=== PATIENT | female | born 1950 | race Two or more races ===

== ENCOUNTER 2019-12-19 20:53 | Inpatient (IN) | payer MEDICARE, MEDICAID ==
[~2019-12-19] VITALS: Ht 157.5 cm; Wt 94.5 kg
[2019-12-19] MEDS ORDERED: SODIUM CHLORIDE 0.9% 300 ML IV ONE (21:15)
[2019-12-19 22:18] LABS: Basophils # (auto) 0 10 ^3/uL (0-0.2); Basophils % (auto) 0.3 % (0.0-2.0); Eosinophils # (auto) 0 10 ^3/uL (0-0.8); Eosinophils % (auto) 0.2 % (0.0-7.0); Lymphocytes # (auto) 0.8 10 ^3/uL (0.4-5.4)
[2019-12-19 22:20] LABS: Hematocrit 30.5 % (36.0-46.0); Hemoglobin 9.8 g/dL (12.2-16.2); Lymphocytes % (auto) 7.5 % (10.0-50.0); Mean Corpuscular Hemoglobin 33.4 pg (28.0-32.0); Mean Corpuscular Hgb Conc. 32.2 g/dL (32.0-36.0); Mean Corpuscular Volume 103.9 fL (80.0-100.0); Monocytes # (auto) 0.8 10 ^3/uL (0-1.3); Monocytes % (auto) 7.2 % (0.0-12.0); Neutrophils # (auto) 9.1 10 ^3/uL (1.6-8.6); Neutrophils % (auto) 84.8 % (37.0-80.0); Nucleated Red Blood Cells % 0.4 %; Platelet Count (auto) 177 10^3/uL (140-450); Red Blood Cells 2.94 10^6/uL (4.0-5.20); Red Cell Distribution Width 17.3 % (11.8-14.3); White Blood Cell 10.7 10^3/uL (4.4-10.8)
[2019-12-19 22:22] LABS: Albumin 2.3 g/dL (3.4-5.0); Anion Gap 7 (5-15); Blood Urea Nitrogen 27 mg/dL (7-18); Carbon Dioxide 28 mmol/L (21-32); Chloride 99 mmol/L (98-107); Potassium 3.1 mmol/L (3.5-5.1); Sodium 134 mmol/L (136-145)
[2019-12-19 22:23] LABS: INR 1.46 (0.9-1.15); Partial Thromboplastin Time 34.7 sec (23.64-32.05)
[2019-12-19 22:26] LABS: Alanine Aminotransferase 17 U/L (13-56); Aspartate Aminotransferase 30 U/L (15-37); Blood Alcohol < 3.0 mg/dL (0-5); GFR African American 19 mL/min; GFR Non-African American 16 mL/min; Glucose 91 mg/dL (74-106)
[2019-12-19 22:27] LABS: BUN/Creatinine Ratio 8.8
[2019-12-19 22:29] LABS: Lactic Acid w/Reflex 2.4 mmol/L (0.4-2.0)
[2019-12-19 22:32] LABS: Alkaline Phosphatase 232 U/L (45-117); Bilirubin, Total 1.4 mg/dL (0.2-1.0); Total Protein 7.2 g/dL (6.4-8.2)
[2019-12-19 23:24] LABS: Urine Bacteria NONE SEEN /hpf (None Seen); Urine Blood 3+ /uL (Negative); Urine Budding Yeast MANY /hpf (None Seen); Urine WBC 4204 /hpf (0 - 5); Urine WBC Clumps PRESENT /hpf (None Seen)
[2019-12-19 23:25] LABS: Urine Specific Gravity 1.027 (1.001-1.035)
[2019-12-20] MEDS ORDERED: ONDANSETRON HCL 4 MG/2 ML VIAL IV PRN (04:15)
[2019-12-20] MEDS ORDERED: MORPHINE SULFATE 4 MG/ML SYR/VIAL IV PRN (04:15)
[2019-12-20] MEDS ORDERED: DOCUSATE SOD 100 MG CAP PO PRN (04:15)
[2019-12-20] MEDS ORDERED: HYDROcodone-ACET 5/325MG TAB PO PRN (04:15)
[2019-12-20] MEDS ORDERED: ACETAMINOPHEN 325 MG TAB PO PRN (04:15)
[2019-12-20] MEDS ORDERED: DEXTROSE (50%) 50ML SYRG IV PRN (04:15)
[2019-12-20] MEDS: cefTRIAXone 1GM/50ML D5W 50 ML IV SCH ×2 (04:47→10:00)
[2019-12-20] MEDS: SODIUM CHLORIDE 0.9% 1,000 ML IV SCH ×2 (04:47→14:01)
[2019-12-20 07:48] LABS: Basophils # (auto) 0.1 10 ^3/uL (0-0.2); Eosinophils # (auto) 0.1 10 ^3/uL (0-0.8); Hemoglobin 10.2 g/dL (12.2-16.2); Monocytes # (auto) 0.9 10 ^3/uL (0-1.3); Monocytes % (auto) 7.9 % (0.0-12.0); Neutrophils # (auto) 9.3 10 ^3/uL (1.6-8.6); White Blood Cell 11.6 10^3/uL (4.4-10.8)
[2019-12-20 07:50] LABS: Basophils % (auto) 0.7 % (0.0-2.0); Eosinophils % (auto) 0.6 % (0.0-7.0); Hematocrit 31.9 % (36.0-46.0); Lymphocytes # (auto) 1.3 10 ^3/uL (0.4-5.4); Lymphocytes % (auto) 11.1 % (10.0-50.0); Mean Corpuscular Hemoglobin 33.1 pg (28.0-32.0); Mean Corpuscular Volume 103.4 fL (80.0-100.0); Neutrophils % (auto) 79.7 % (37.0-80.0); Nucleated Red Blood Cells % 0.1 %; Platelet Count (auto) 181 10^3/uL (140-450); Red Blood Cells 3.09 10^6/uL (4.0-5.20); Red Cell Distribution Width 17.4 % (11.8-14.3)
[2019-12-20] MEDS: InsuLIN REG 1unit/0.01ml Soln (100units/ml) SC SCH ×5 (08:00→23:54)
[2019-12-20 08:08] LABS: BUN/Creatinine Ratio 8.8; Calcium 8.9 mg/dL (8.5-10.1)
[2019-12-20 08:13] LABS: Potassium 2.9 mmol/L (3.5-5.1)
[2019-12-20] MEDS: ACCU-CHEK COMFORT CURVE STRIP VI SCH ×5 (08:30→23:54)
[2019-12-20] MEDS ORDERED: POTASSIUM CHLORIDE 20 MEQ, LIDOCAINE 1% (LOCAL ANESTH.) 2 ML in SODIUM CHL 0.9% 100 ML IV ONE (08:30)
--- NOTE | 2019-12-20 10:00 | NUR ---
TRANSFERRED Patient brought to [facility] by ABDIEL LUQUE RN. Care initiated.
--- NOTE | 2019-12-20 10:05 | NUR ---
LARGE BM Patient has dried bowel movement on her inner thighs and labia on arrival from emergency room. Cleaning patient.
--- NOTE | 2019-12-20 10:15 | NUR ---
FULL LINEN CHANGE Patient hard large liquid BM.
--- NOTE | 2019-12-20 10:30 | NUR ---
SPOKE TO MD: [place] Patient is not a HDD patient. Changing consult to Eunice.
--- NOTE | 2019-12-20 10:34 | NUR ---
AIR MATTRESS: Specialty air mattress ordered at [facility],Reference # [id number]; ETA 12/20/19 @6376, Call [facility] if need to follow up at [phone] Addendum: 12/20/19 at 1036 by Lachelle Martinez RN Amended: Links added.
--- NOTE | 2019-12-20 11:15 | NUR ---
SPOKE TO FAMILY Spoke to patients nephewHerminio, update on patient status and plan of care given.
[2019-12-20 11:45] VITALS: BP 97/47
[2019-12-20 15:19] LABS: Anion Gap 6 (5-15); BUN/Creatinine Ratio 8.4; Blood Urea Nitrogen 28 mg/dL (7-18); Calcium 8.6 mg/dL (8.5-10.1); Carbon Dioxide 28 mmol/L (21-32); Chloride 102 mmol/L (98-107); GFR African American 18 mL/min; GFR Non-African American 15 mL/min; Glucose 109 mg/dL (74-106); Potassium 3.3 mmol/L (3.5-5.1); Sodium 136 mmol/L (136-145)
--- NOTE | 2019-12-20 15:34 | NUR ---
CONSULT CALLED IN Called Dr. Dawson's office and placed consult.
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
[2019-12-20 15:40] VITALS: BP 93/45
--- NOTE | 2019-12-20 16:55 | NUR ---
SPOKE TO FAMILY Nephew Herminio called for an update. Update given at this time.
--- NOTE | 2019-12-20 16:56 | NUR ---
TRANSFERRED TO SPECIALTY AIR BED Patient transferred to air bed. Patient tolerated well.
--- NOTE | 2019-12-20 17:30 | NUR ---
MD BEDSIDE: Gloria Castro bedside assessing patient. Spoke to MD about patients mass in right lower quadrant of the abdomen. MD ordered OB consult and transvaginal US. Orders verified and placed.
[2019-12-20 20:00] VITALS: BP 97/17
[2019-12-21] VITALS: BP 119/37
[2019-12-21] MEDS: SODIUM CHLORIDE 0.9% 1,000 ML IV SCH ×2 (00:01→06:28)
[2019-12-21 03:37] LABS: Basophils # (auto) 0.1 10 ^3/uL (0-0.2); Basophils % (auto) 0.6 % (0.0-2.0); Eosinophils # (auto) 0.1 10 ^3/uL (0-0.8); Eosinophils % (auto) 0.7 % (0.0-7.0); Hematocrit 31.1 % (36.0-46.0); Lymphocytes # (auto) 0.7 10 ^3/uL (0.4-5.4); Lymphocytes % (auto) 7.6 % (10.0-50.0); Mean Corpuscular Hemoglobin 33.3 pg (28.0-32.0); Mean Corpuscular Hgb Conc. 32.1 g/dL (32.0-36.0); Mean Corpuscular Volume 103.7 fL (80.0-100.0); Monocytes # (auto) 0.5 10 ^3/uL (0-1.3); Monocytes % (auto) 5.3 % (0.0-12.0); Neutrophils # (auto) 8.2 10 ^3/uL (1.6-8.6); Neutrophils % (auto) 85.8 % (37.0-80.0); Nucleated Red Blood Cells % 0.4 %; Platelet Count (auto) 184 10^3/uL (140-450); Red Cell Distribution Width 17.5 % (11.8-14.3); White Blood Cell 9.5 10^3/uL (4.4-10.8)
[2019-12-21] MEDS: InsuLIN REG 1unit/0.01ml Soln (100units/ml) SC SCH ×5 (03:52→20:00)
[2019-12-21] MEDS: ACCU-CHEK COMFORT CURVE STRIP VI SCH ×5 (03:52→20:00)
[2019-12-21 03:54] LABS: Albumin 2.2 g/dL (3.4-5.0); Calcium 8.7 mg/dL (8.5-10.1)
[2019-12-21 03:58] LABS: BUN/Creatinine Ratio 9.7; Bilirubin, Total 0.7 mg/dL (0.2-1.0); Total Protein 6.7 g/dL (6.4-8.2)
[2019-12-21 04:00] VITALS: BP 116/16
--- NOTE | 2019-12-21 04:45 | NUR ---
hospitalist paged regarding morning labs
--- NOTE | 2019-12-21 05:10 | NUR ---
HOSPITALIST CALLED BACK ORDER RECEIVED, READ BACK AND VERIFIED. WILL BE PLACED INTO [employer] BY RN.
[2019-12-21] MEDS ORDERED: POTASSIUM CHL 20 Meq TABLET PO ONE (05:15)
--- NOTE | 2019-12-21 05:51 | NUR ---
PT HAD BM COMPLETE LINEN CHANGE. NOW RESTING IN BED. WILL CONTINUE TO MONITOR.
[2019-12-21 08:00] VITALS: BP 99/46
--- NOTE | 2019-12-21 08:00 | NUR ---
Opening Shift Note Assumed care of patient, awake and alert. No S/S of distress/SOB or pain. Patient saturation 97% at room air. Patient's POC glucose 60mg/dl, patient given 8ox juice and eating breakfast. See interventions for complete assessment. Bed locked on low position, side rails up x2, bed alarms on at all times, call mg within reach, instructed on POC and to call for assist PRN, will continue to monitor for changes Q1hr and PRN.
--- NOTE | 2019-12-21 09:11 | NUR ---
Dr Tarango at bedside, updated on patient's status. Patient seen and examined. Plan to do LT 3rd digit toe amputation on Sat, NPO midnight of Sat . states "I'll put the order in." Read back and verified.
[2019-12-21] MEDS: cefTRIAXone 1GM/50ML D5W 50 ML IV SCH (10:10)
[2019-12-21 11:45] VITALS: BP 93/47
--- NOTE | 2019-12-21 13:00 | NUR ---
Dr Castro at bedside, updated on patient's status, informed of patient's anuria/oliguria and low BP's. MD verbalized understanding. Patient seen and examined. Will carry out new orders.
--- NOTE | 2019-12-21 13:03 | NUR ---
Dr Castro informed patient has been having watery stools, received order for CDIFF and stool bacterial culture. Read back and verified.
--- NOTE | 2019-12-21 13:15 | NUR ---
Patient had moderate amount of watery stool, given perineal care. Skin integrity assessed for any changes. Cleansed sacral wounds with wound cleanser, pat dry with gauze, z guard applied, optifoam placed. Patient's gown and linens changed. Patient repositioned for comfort. Stool sample for Cdiff and culture sent to lab.
--- NOTE | 2019-12-21 13:37 | NUR ---
Dr Bruce at bedside, updated on patient's status. Patient seen and examined. Will carry out new orders.
--- NOTE | 2019-12-21 13:40 | NUR ---
MRSA swab and stool sample sent to lab. Not enough urine to collect for bacterial culture at this time.
--- NOTE | 2019-12-21 13:48 | NUR ---
Spoke to patient's nephew Herminio who's able to provide password, updated on patient's status and POC, verbalized understanding. All questions and concerns addressed.
--- NOTE | 2019-12-21 14:34 | NUR ---
Nutrition Assessment Notes Please refer to link for full assessment notes. Est Energy needs: 0659-8438 kcals (20-23 kcal/kgBW) Est Protein needs: 115-126 gms/day (1.1-1.2 gm/kgBW) Will continue to monitor and reassess prn. Addendum: 12/21/19 at [address] Amended: Links added.
[2019-12-21] MEDS ORDERED: LIDOCAINE 1% HCL (LOCAL ANESTH.) INJ 20ML MDV ID ONE ×2 (15:30)
[2019-12-21] MEDS ORDERED: SODIUM CHL 0.9% 1000 ML BAG XX ONE (15:30)
--- NOTE | 2019-12-21 15:33 | NUR ---
Dr Locke at bedside, updated on patient's status. Aware of patient's anuria/oliguria and hematuria. Received verbal order to discontinue IV fluids. Read back and verified. Will carry out.
[2019-12-21] MEDS ORDERED: ALBUMIN 25% 100 ML IV ONE ×2 (15:45→17:00)
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
[2019-12-21 16:00] VITALS: BP 91/54
--- NOTE | 2019-12-21 16:11 | NUR ---
Attempted to collect urine sample for culture but patient has no urine output.
[2019-12-21] MEDS ORDERED: LIDOCAINE 1% (LOCAL ANESTH.) PF 5ml SDV ID ONE (16:15)
--- NOTE | 2019-12-21 16:18 | NUR ---
HD started at bedside, will continue to monitor.
--- NOTE | 2019-12-21 16:30 | NUR ---
Patient's blood sugar 132mg/dl, held two units of Insulin because patient's blood sugar has been on the lower side. Will continue to monitor.
--- NOTE | 2019-12-21 16:40 | NUR ---
Spoke to Dr Tarango over the phone, clarified Cardiology consult to Dr Kohli and states "Can you please re-direct the consult to Dr Vincent for revascularization of LT leg." Read back and verified. Will carry out.
--- NOTE | 2019-12-21 16:45 | NUR ---
Called in consult to Dr Vincent, awaiting call back.
[2019-12-21] MEDS: Glucerna Carbsteady SHAKE Vanilla 8oz PO SCH (18:00)
--- NOTE | 2019-12-21 19:15 | NUR ---
OPENING SHIFT RECEIVED REPORT FROM DAY SHIFT RN. ASSUMED CARE OF PATIENT. PATIENT IN BED RECEIVING DIALYSIS - POWDER BLENDER AT BEDSIDE. PATIENT TOLERATING DIALYSIS WELL, NO SIGNS OR SYMPTOMS OF SOB, PAIN OR DISTRESS. CURRENTLY ON ROOM AIR, 02 SAT - 100%. RIGHT ANTECUBITAL IV - CLEAN/DRY/INTACT. LEFT ARM FISTULA AUSCULTATED - BRUIT AND THRILL PRESENT. GOLDSTEIN HUNG TO GRAVITY. REPOSITIONED FOR COMFORT. UPDATED PATIENT ON PLAN OF CARE. BED IN LOWEST POSITION, SIDE RAILS UP X2. CALL LIGHT WITHIN REACH. WILL CONTINUE TO MONITOR.
[2019-12-21 20:00] VITALS: BP 108/54
[2019-12-21] MEDS: DAKINS QUARTER STR 0.125% (NaHypochlorite) 473 ML TOPICAL SOL TOP SCH (22:00)
[2019-12-21] MEDS ORDERED: DAKINS QUARTER STR 0.125% (NaHypochlorite) 473 ML TOPICAL SOL TOP SCH (22:00)
[2019-12-22] VITALS: BP 94/50
[2019-12-22 03:18] LABS: Eosinophils % (auto) 0.7 % (0.0-7.0); Monocytes # (auto) 0.5 10 ^3/uL (0-1.3); Platelet Count (auto) 171 10^3/uL (140-450)
[2019-12-22 03:20] LABS: Basophils # (auto) 0 10 ^3/uL (0-0.2); Basophils % (auto) 0.6 % (0.0-2.0); Eosinophils # (auto) 0 10 ^3/uL (0-0.8); Hematocrit 27.3 % (36.0-46.0); Lymphocytes # (auto) 0.6 10 ^3/uL (0.4-5.4); Lymphocytes % (auto) 7.9 % (10.0-50.0); Mean Corpuscular Hemoglobin 33.7 pg (28.0-32.0); Mean Corpuscular Hgb Conc. 32.9 g/dL (32.0-36.0); Mean Corpuscular Volume 102.4 fL (80.0-100.0); Monocytes % (auto) 6.7 % (0.0-12.0); Neutrophils # (auto) 5.9 10 ^3/uL (1.6-8.6); Neutrophils % (auto) 84.1 % (37.0-80.0); Nucleated Red Blood Cells % 0.2 %; Red Blood Cells 2.67 10^6/uL (4.0-5.20); Red Cell Distribution Width 17.1 % (11.8-14.3)
[2019-12-22] MEDS: ACCU-CHEK COMFORT CURVE STRIP VI SCH ×6 (03:32→20:00)
[2019-12-22] MEDS: InsuLIN REG 1unit/0.01ml Soln (100units/ml) SC SCH ×6 (03:32→20:37)
[2019-12-22 03:40] LABS: INR 1.3 (0.9-1.15); Partial Thromboplastin Time 31.5 sec (23.64-32.05); Potassium 3.5 mmol/L (3.5-5.1)
[2019-12-22 03:47] LABS: Albumin 2.7 g/dL (3.4-5.0); BUN/Creatinine Ratio 8.4; Bilirubin, Total 0.9 mg/dL (0.2-1.0); Calcium 8.1 mg/dL (8.5-10.1); Total Protein 6.9 g/dL (6.4-8.2)
--- NOTE | 2019-12-22 03:57 | NUR ---
URINE SPECIMEN COLLECTED AND SENT TO LAB
[2019-12-22 04:00] VITALS: BP 88/44
--- NOTE | 2019-12-22 04:30 | NUR ---
MORNING CARE PERFORMED MORNING CARE WITH CHG WIPES AND WASH CLOTHS TO THE FACE. FULL LINEN CHANGE AND GOWN CHANGED. REPOSITIONED FOR COMFORT. SKIN REASSESSED AT THIS TIME. SACRAL AND LEFT FOOT DRESSINGS CHANGED AND ENFORCED. GOLDSTEIN CARE PERFORMED. PATIENT PERFORMED ORAL CARE ON SELF. BED IN LOWEST POSITION, SIDE RAILS UP X2. CALL LIGHT WITHIN REACH. WILL CONTINUE TO MONITOR.
[2019-12-22 08:00] VITALS: BP 93/51
--- NOTE | 2019-12-22 08:05 | NUR ---
END OF SHIFT REPORT GIVEN TO DAY SHIFT RN. CARE ENDORSED.
--- NOTE | 2019-12-22 08:30 | NUR ---
Opening Shift Note Assumed care of patient, awake and alert. No S/S of distress/SOB or pain. See interventions for complete assessment. Bed locked on low position, side rails up x2, bed alarms on at all times, call mg within reach, instructed on POC and to call for assist PRN, will continue to monitor for changes Q1hr and PRN.
--- NOTE | 2019-12-22 09:00 | NUR ---
Dr Locke at bedside, updated on patient's status. Patient seen and examined. Received verbal order to discontinue calderon catheter, read back and verified. Will carry out.
[2019-12-22] MEDS ORDERED: MIDODRINE HCL 10 MG TAB PO ONE (09:15)
[2019-12-22] MEDS: Glucerna Carbsteady SHAKE Vanilla 8oz PO SCH ×3 (09:22→17:49)
--- NOTE | 2019-12-22 09:30 | NUR ---
Cleansed LT 3rd toe with 1/4 Daikin's solution covered with xeroform and kirlix, patient tolerated well.
[2019-12-22] MEDS: cefTRIAXone 1GM/50ML D5W 50 ML IV SCH (09:38)
[2019-12-22] MEDS: DAKINS QUARTER STR 0.125% (NaHypochlorite) 473 ML TOPICAL SOL TOP SCH ×2 (09:39→21:27)
--- NOTE | 2019-12-22 10:00 | NUR ---
Calderon catheter dc'd Order to discontinue calderon catheter. Calderon dc'd with clean technique following deflation of balloon. Patient tolerated well with no complaints of pain. Continue care.
--- NOTE | 2019-12-22 10:20 | NUR ---
Received call from patient's nephew/caregiver Herminio who's able to provide password. Updated on patient's status and POC. All questions and concerns addressed.
--- NOTE | 2019-12-22 10:45 | NUR ---
IV removal RT AC leaking, disconitnue with clean sterile technique, catheter fully intact. Pressure dressing applied to site. Patient tolerated well.
--- NOTE | 2019-12-22 10:50 | NUR ---
2x Unsuccesful attempt to obtain IV access, 22 g catheter RT hand and RT forearm. No trauma to site.
--- NOTE | 2019-12-22 11:15 | NUR ---
IV insertion IV access obtained, via clean sterile technique by inserting 20 gauge catheter at RT AC after two attempts by Le STARR. IV secured properly. No trauma to site. Patient tolerated procedure well.
--- NOTE | 2019-12-22 11:43 | NUR ---
Dr Castro at bedside, updated on patent's status, verbalized understanding. Patient seen and examined. Received verbal order to start patient on Vancomycin per pharmacy protocol, Regina Hernandez informed.
[2019-12-22] MEDS ORDERED: PHYTONADIONE(VitK) ORAL Susp 10mg/10ml(1mg/ml) PO ONE (11:45)
[2019-12-22 11:47] VITALS: BP 102/49
[2019-12-22] MEDS ORDERED: VANCOMYCIN PER PHARMACY 0 MG IV SCH (12:00)
--- NOTE | 2019-12-22 12:26 | NUR ---
Patient's blood sugar 138mg/dl, 2 units Regular Insulin held because patient's blood sugar has been on the lower side. Will continue to monitor.
[2019-12-22] MEDS ORDERED: VANCOMYCIN 1GM/250ML 250 ML IV ONE (13:00)
[2019-12-22 16:15] VITALS: BP 90/46
--- NOTE | 2019-12-22 19:15 | NUR ---
OPENING SHIFT RECEIVED REPORT FROM DAY SHIFT RN. ASSUMED CARE OF PATIENT. NO SIGNS OR SYMPTOMS OF SOB, PAIN OR DISTRESS. CURRENTLY ON ROOM AIR, 02 SAT - 100%. RIGHT ANTECUBITAL IV - CLEAN/DRY/INTACT. LEFT ARM FISTULA AUSCULTATED - BRUIT AND THRILL PRESENT. REPOSITIONED FOR COMFORT. UPDATED PATIENT ON PLAN OF CARE. BED IN LOWEST POSITION, SIDE RAILS UP X2. CALL LIGHT WITHIN REACH. WILL CONTINUE TO MONITOR.
[2019-12-22 20:00] VITALS: BP 92/52
[2019-12-23] VITALS: BP 98/54
[2019-12-23 03:17] LABS: Basophils # (auto) 0 10 ^3/uL (0-0.2); Basophils % (auto) 0.6 % (0.0-2.0); Lymphocytes # (auto) 0.6 10 ^3/uL (0.4-5.4); Monocytes # (auto) 0.5 10 ^3/uL (0-1.3); Nucleated Red Blood Cells % 0.1 %
[2019-12-23 03:19] LABS: Eosinophils # (auto) 0.1 10 ^3/uL (0-0.8); Eosinophils % (auto) 0.9 % (0.0-7.0); Hematocrit 27.8 % (36.0-46.0); Lymphocytes % (auto) 9.1 % (10.0-50.0); Mean Corpuscular Hemoglobin 33.5 pg (28.0-32.0); Mean Corpuscular Hgb Conc. 32.5 g/dL (32.0-36.0); Mean Corpuscular Volume 103.2 fL (80.0-100.0); Monocytes % (auto) 8.1 % (0.0-12.0); Neutrophils # (auto) 4.9 10 ^3/uL (1.6-8.6); Neutrophils % (auto) 81.3 % (37.0-80.0); Platelet Count (auto) 174 10^3/uL (140-450); Red Blood Cells 2.69 10^6/uL (4.0-5.20); Red Cell Distribution Width 17.1 % (11.8-14.3)
[2019-12-23 03:29] LABS: INR 1.18 (0.9-1.15)
[2019-12-23 03:59] LABS: Albumin 2.7 g/dL (3.4-5.0); Calcium 8.1 mg/dL (8.5-10.1); Potassium 3.5 mmol/L (3.5-5.1)
[2019-12-23 04:00] VITALS: BP 90/46
[2019-12-23 04:02] LABS: Bilirubin, Total 0.9 mg/dL (0.2-1.0); Total Protein 7.2 g/dL (6.4-8.2)
[2019-12-23] MEDS: ACCU-CHEK COMFORT CURVE STRIP VI SCH ×6 (04:15→20:00)
[2019-12-23] MEDS: InsuLIN REG 1unit/0.01ml Soln (100units/ml) SC SCH ×6 (04:15→20:00)
--- NOTE | 2019-12-23 05:11 | NUR ---
COMPLETE BED BATH GIVEN TO PATIENT SKIN REASSESSED AND NO NEW BREAK DOWN NOTED. PATIENT TOLERATED WELL. SKIN PREP FOR PROCEDURE DONE AT THIS TIME
[2019-12-23] MEDS ORDERED: SODIUM CHL 0.9% 1000 ML BAG XX ONE (07:00)
--- NOTE | 2019-12-23 07:35 | NUR ---
INITIAL CONTACT Report received from Abraham STARR, care assumed Patient is awake, alert, and oriented. Patient able to follow simple commands. Afebrile. Denies chest pain or discomfort. Patient legally blind with some difficulty hearing at times. Lungs clear anteriorly. Patient on 2 L nasal cannula, denies shortness of breath. Patient denies nausea. See skin/ wound assessment. Left upper arm fistula. Patient on specialty air mattress, frequent turning schedule. Bed locked in lowest position, call light within reach. Patient instructed to call for assistance. Patient verbalized understanding. Will continue to monitor.
[2019-12-23 07:40] VITALS: BP 104/58
[2019-12-23] MEDS: Glucerna Carbsteady SHAKE Vanilla 8oz PO SCH ×3 (08:00→17:28)
[2019-12-23] MEDS: DAKINS QUARTER STR 0.125% (NaHypochlorite) 473 ML TOPICAL SOL TOP SCH ×2 (10:07→22:00)
[2019-12-23] MEDS: cefTRIAXone 1GM/50ML D5W 50 ML IV SCH (10:15)
[2019-12-23] MEDS ORDERED: DAKINS HALF STR 0.25% (NaHypochlorite) 473 ML TOPICAL SOL TOP ONE (10:15)
--- NOTE | 2019-12-23 10:45 | NUR ---
COMMUNITY NUTRITION EDUCATOR dog boarder at bedside. Nurse made aware patient is going to OR. She is to be notified when patient returns back to room.
--- NOTE | 2019-12-23 10:50 | NUR ---
O.R. Patient taken to OR via bed. Consents signed in chart, checklist complete.
[2019-12-23] MEDS ORDERED: ceFAZolin 1GM/50ML 50 ML IV ONE (11:03)
[2019-12-23] MEDS ORDERED: LIDOCAINE 1% HCL (LOCAL ANESTH.) INJ 20ML MDV ONE (11:10)
[2019-12-23] MEDS ORDERED: BUPIVACAINE HCL 50 ML ONE (11:10)
[2019-12-23] MEDS ORDERED: BUPIVACAINE 0.5% MPF INJ 30ML SDV IJ ONE (11:10)
[2019-12-23] MEDS ORDERED: fentaNYL CITRATE 100 MCG/2 ML VL ONE (11:33)
[2019-12-23] MEDS ORDERED: MIDAZOLAM HCL 1MG/1ML-2 ML VIAL ONE (11:33)
[2019-12-23] MEDS ORDERED: PROPOFOL 10 MG/ML 20 ML IV ONE (11:35)
--- NOTE | 2019-12-23 11:48 | NUR ---
MD VISIT at bedside. MD reviewing medical chart. New orders obtained. stated that patient may be downgraded to tele unit after dialysis treatment if blood pressure remains stable.
--- NOTE | 2019-12-23 13:00 | NUR ---
PT RETURNED TO ROOM Patient returned to room s/p orthopedic procedure with . Patient is awake and alert. Patient denies pain or distress. Vital signs remain stable with blood pressure trending low systolic. Complete linen change complete with fabiana care performed. Patient repositioned on side with head of bed elevated. Bed locked in lowest position, call light and personal belongings within reach.
--- NOTE | 2019-12-23 13:08 | NUR ---
MD VISIT at bedside assessing patient.
--- NOTE | 2019-12-23 14:08 | NUR ---
FAMILY Spoke with patient nephew regarding an update on patient status. All questions and concerns addressed.
[2019-12-23] MEDS ORDERED: MIDODRINE HCL 10 MG TAB PO ONE (14:15)
--- NOTE | 2019-12-23 14:30 | NUR ---
DIALYSIS NURSE AT BEDSIDE.
--- NOTE | 2019-12-23 14:40 | NUR ---
MD VISIT Dr.Zirprick vasquez at bedside. MD aware of low trending blood pressure after surgery.
[2019-12-23 15:45] VITALS: BP 88/51
--- NOTE | 2019-12-23 17:51 | NUR ---
DIALYSIS COMPLETE 1 l REMOVED.
[2019-12-23 20:00] VITALS: BP 90/50
[2019-12-23 23:36] VITALS: BP 82/40
[2019-12-24 03:39] LABS: Basophils # (auto) 0 10 ^3/uL (0-0.2); Basophils % (auto) 0.4 % (0.0-2.0); Eosinophils # (auto) 0.1 10 ^3/uL (0-0.8); Eosinophils % (auto) 0.7 % (0.0-7.0); Hemoglobin 8.7 g/dL (12.2-16.2); Lymphocytes # (auto) 0.5 10 ^3/uL (0.4-5.4); Lymphocytes % (auto) 7.1 % (10.0-50.0); Mean Corpuscular Hemoglobin 33.5 pg (28.0-32.0); Mean Corpuscular Hgb Conc. 32.3 g/dL (32.0-36.0); Mean Corpuscular Volume 103.6 fL (80.0-100.0); Monocytes # (auto) 0.6 10 ^3/uL (0-1.3); Monocytes % (auto) 8.1 % (0.0-12.0); Neutrophils # (auto) 6.3 10 ^3/uL (1.6-8.6); Neutrophils % (auto) 83.7 % (37.0-80.0); Platelet Count (auto) 170 10^3/uL (140-450); Red Cell Distribution Width 17.8 % (11.8-14.3); White Blood Cell 7.5 10^3/uL (4.4-10.8)
[2019-12-24 03:59] LABS: BUN/Creatinine Ratio 9.9; Calcium 7.7 mg/dL (8.5-10.1); Potassium 3.4 mmol/L (3.5-5.1)
[2019-12-24 04:00] VITALS: BP 87/45
[2019-12-24] MEDS: InsuLIN REG 1unit/0.01ml Soln (100units/ml) SC SCH ×5 (04:00→20:00)
[2019-12-24] MEDS: ACCU-CHEK COMFORT CURVE STRIP VI SCH ×7 (04:00→20:00)
[2019-12-24 08:00] VITALS: BP 90/48
--- NOTE | 2019-12-24 08:00 | NUR ---
Opening Shift Note Assumed care of patient, awake and alert. No S/S of distress/SOB or pain. Patient saturation 98% at room air. See interventions for complete assessment. Bed locked on low position, side rails up x2, bed alarms on at all times, call mg within reach, instructed on POC and to call for assist PRN, will continue to monitor for changes Q1hr and PRN.
--- NOTE | 2019-12-24 08:10 | NUR ---
Dr Locke at bedside, updated on patient's status. Patient seen and examined. Will carry out new orders.
[2019-12-24] MEDS ORDERED: POTASSIUM CHL 20 Meq TABLET PO ONE (08:15)
[2019-12-24] MEDS ORDERED: MORPHINE SULF INJ 2 MG/ML SYRINGE 1ML IV PRN (08:30)
[2019-12-24] MEDS: Glucerna Carbsteady SHAKE Vanilla 8oz PO SCH ×3 (09:07→17:51)
--- NOTE | 2019-12-24 09:15 | NUR ---
Received call from patient's Nephew Herminio who's able to provide password. Updated on patient's status and POC, verbalized understanding. All questions and concerns addressed.
[2019-12-24] MEDS: DAKINS QUARTER STR 0.125% (NaHypochlorite) 473 ML TOPICAL SOL TOP SCH ×2 (09:21→21:35)
[2019-12-24] MEDS: cefTRIAXone 1GM/50ML D5W 50 ML IV SCH (09:23)
--- NOTE | 2019-12-24 09:29 | NUR ---
Margy Ledesma SENIOR STORAGE ENGINEER at bedside, updated on patient's status. Patient seen and examined. Will carry out new orders.
[2019-12-24] MEDS ORDERED: VANCOMYCIN 1GM/250ML 250 ML IV ONE (11:45)
[2019-12-24 12:00] VITALS: BP 95/50
--- NOTE | 2019-12-24 12:08 | NUR ---
Patient's blood sugar 132mg/dl, 2 units of Regular Insulin held, patient's blood sugars has been on the lower side. Will continue to monitor.
--- NOTE | 2019-12-24 12:30 | NUR ---
Dr Cedeno at bedside, updated on patient's status. Patient seen and examined. No new orders at this time.
[2019-12-24 15:49] VITALS: BP 92/48
--- NOTE | 2019-12-24 17:25 | NUR ---
Spoke to Dr Clements over the phone, updated on patient's status, verbalized understanding. Received telephone order to transfer patient to Telemetry floor. Read back and verified. Will facilitate.
--- NOTE | 2019-12-24 17:45 | NUR ---
Patient had moderate amount of watery stool, perineal care rendered. Skin integrity assessed for any changes. Patient's gown and linens changed. Zguard applied and optifoam placed on sacrum. Patient repositioned for comfort. Will give Imodium PRN.
[2019-12-24] MEDS: LOPERAMIDE HCL 2 MG CAP PO PRN (18:43)
--- NOTE | 2019-12-24 19:30 | NUR ---
Assumed care, full assessment done; see interventions. Patient legally blind in both eyes, A/O x 4, no complaints of pain. Hemodynamically stable. Patient aware of NPO status after midnight for lower extremity angiogram tomorrow. Call light and belongings within reach.
[2019-12-24 20:00] VITALS: BP 102/49
--- NOTE | 2019-12-24 22:00 | NUR ---
Left foot DSG changed per MD orders; patient tolerated well.
[2019-12-24 23:53] VITALS: BP 102/56
[2019-12-25 03:24] LABS: Basophils # (auto) 0.1 10 ^3/uL (0-0.2); Basophils % (auto) 0.7 % (0.0-2.0); Eosinophils # (auto) 0.1 10 ^3/uL (0-0.8); Eosinophils % (auto) 0.8 % (0.0-7.0); Hematocrit 27.3 % (36.0-46.0); Hemoglobin 8.5 g/dL (12.2-16.2); Lymphocytes # (auto) 0.6 10 ^3/uL (0.4-5.4); Lymphocytes % (auto) 8.2 % (10.0-50.0); Mean Corpuscular Hemoglobin 33.2 pg (28.0-32.0); Mean Corpuscular Hgb Conc. 31.1 g/dL (32.0-36.0); Mean Corpuscular Volume 106.8 fL (80.0-100.0); Monocytes # (auto) 0.6 10 ^3/uL (0-1.3); Monocytes % (auto) 7.5 % (0.0-12.0); Neutrophils # (auto) 6.1 10 ^3/uL (1.6-8.6); Neutrophils % (auto) 82.8 % (37.0-80.0); Platelet Count (auto) 146 10^3/uL (140-450); Red Blood Cells 2.55 10^6/uL (4.0-5.20); Red Cell Distribution Width 18.2 % (11.8-14.3); White Blood Cell 7.4 10^3/uL (4.4-10.8)
[2019-12-25 03:36] LABS: INR 1.18 (0.9-1.15); Partial Thromboplastin Time 25.6 sec (23.64-32.05)
[2019-12-25] MEDS: ACCU-CHEK COMFORT CURVE STRIP VI SCH ×6 (03:42→19:59)
[2019-12-25] MEDS: InsuLIN REG 1unit/0.01ml Soln (100units/ml) SC SCH ×6 (03:42→20:00)
[2019-12-25 03:49] LABS: BUN/Creatinine Ratio 11.3; Calcium 7.7 mg/dL (8.5-10.1); Potassium 3.8 mmol/L (3.5-5.1)
[2019-12-25 04:00] VITALS: BP 90/46
--- NOTE | 2019-12-25 05:15 | NUR ---
Spoke with perfect binder feeder offbearer, made aware that patient is scheduled for angiogram today but this RN is unaware of procedure time.
--- NOTE | 2019-12-25 06:00 | NUR ---
AM EKG done, pre-op CHG bath given, and patient did own oral care. Patient incontinent of 3 large liquid BMs last night, dressings to buttock and sacrum changed each time.
[2019-12-25] MEDS ORDERED: SODIUM CHL 0.9% 1000 ML BAG XX ONE (07:00)
[2019-12-25 07:40] VITALS: BP 96/50
[2019-12-25] MEDS: Glucerna Carbsteady SHAKE Vanilla 8oz PO SCH ×3 (08:00→18:27)
--- NOTE | 2019-12-25 09:45 | NUR ---
Resumed care at 0720, orders reviewed and ongoing assessments being done. Being treated for multiple problems. Upon arrival in bed and able to make needs known. Is legally blind and bed zia and does require max. care. Is able to move extremitas and tries to participate with self care. Is scheduled for a bilateral lower extremity angiogram with Dr. Vincent today. Reviewed plan of care and maintaining NPO. All questions answered. Contacted the [facility]. to confirm procedure.
--- NOTE | 2019-12-25 10:35 | NUR ---
Left foot dressing changed per MD orders. No compliant of pain during treatment.
[2019-12-25] MEDS: cefTRIAXone 1GM/50ML D5W 50 ML IV SCH (10:40)
[2019-12-25] MEDS: DAKINS QUARTER STR 0.125% (NaHypochlorite) 473 ML TOPICAL SOL TOP SCH ×2 (10:41→22:00)
[2019-12-25 11:40] VITALS: BP 93/46
[2019-12-25] MEDS: D5W 5% 250 ML IV SCH ×2 (12:15→20:35)
--- NOTE | 2019-12-25 12:15 | NUR ---
Dr. June rounded at 1150. Made her aware that procedure has been delayed and maintaining NPO since midnight. Per Dr. June, initiated IVF with D5W to run at 30ml/hr until she goes to [employer] Off Saw Operator.
--- NOTE | 2019-12-25 14:12 | NUR ---
Nutrition Followup Notes Wt: 104.7 kg Pt was sleeping with MD at bedside. per pt records pt to have agiogram today. pt with improving metabolic enceph. pt is currently NPO. Pt to have HD today Est Energy needs: 8604-0372 kcals (20-23 kcal/kgBW), Est Protein needs: 115-126 gms/day (1.1-1.2 gm/kgBW). Will continue to monitor and reassess prn. LABS: BUN 36 H, CREAT 3.2 H, GLU 121 H, CA 7.7 L GI: pt had 3 BM today diarr per RN doc BS: 11 high risk. Please refer to wound assessment report for full details. PES: Problem: 1) Obesity r/t energy intake in excess of energy needs aeb 210% IBW and BMI of 42.3 kg/m2 3) Altered nutrition related lab values r/t current/chronic medical condition aeb elev RFTs, mod hypoalbuminemia Comments Will continue to closely monitor pertinent labs, NPO status/PO intake and skin status prn. Will followup in 2-3 days 1) resume diet as medically feasible. 2) Continue to closely monitor pt PO intake to meet at least 75% of meals. 3) Suggest a daily MVI with 500mg VitC BID. 4) Continue current plan of care
[2019-12-25] MEDS ORDERED: IOHEXOL 350 MG/ML 100ML IJ ONE (14:29)
[2019-12-25] MEDS ORDERED: LIDOCAINE 2%HCL (LOCAL ANESTH.) INJ 20ML MDV ONE (14:29)
--- NOTE | 2019-12-25 14:38 | NUR ---
Escorted to Quality Control Analyst by Clara STARR and Hipolito STARR for angiogram. Left alert and interacting appropriately. Made her and staff aware that she will be transferred to room 220A post procedure, has been TELE status.
[2019-12-25] MEDS ORDERED: IODIXANOL 320MG/ML 100ML BTL IV ONE (14:45)
[2019-12-25] MEDS ORDERED: ANGIOMAX 250 MG VIAL IV ONE (15:02)
[2019-12-25] MEDS ORDERED: MIDAZOLAM HCL 1MG/1ML-2 ML VIAL ONE (15:03)
[2019-12-25] MEDS ORDERED: fentaNYL CITRATE 100 MCG/2 ML VL ONE (15:03)
[2019-12-25] MEDS ORDERED: SODIUM CHL 0.9% 0 ML ONE (15:03)
--- NOTE | 2019-12-25 15:09 | NUR ---
Contacted nephjas Durham and made him aware that she will be moved to a new room post procedure. All belongings taken to room by Daryn ALLEN. Personal belongings a night gown and one pair of yellow small hoop earrings.
[2019-12-25] MEDS ORDERED: LIDOCAINE 1% HCL (LOCAL ANESTH.) INJ 20ML MDV ID ONE (17:15)
[2019-12-25] MEDS ORDERED: VANCOMYCIN 500 MG in D5W 5% 100 ML IV ONE ×2 (18:00→18:30)
--- NOTE | 2019-12-25 19:45 | NUR ---
Opening Shift Note Assumed care of patient, awake and alert. No S/S of distress/SOB or pain noted. Dialysis nurse at the bedside. Instructed on POC and to call for assist PRN. Bed is in lowest locked position with bed rails up x2 and call light is within reach of the patient.
--- NOTE | 2019-12-25 20:23 | NUR ---
Patient did not eat dinner: Patient did not eat dinner. Patient is groggy and sleeping. IV fluids continued at this time.
[2019-12-25] MEDS: VANCOMYCIN 500 MG in D5W 5% 100 ML IV ONE ×2 (21:00→21:33)
[2019-12-25] MEDS ORDERED: EPOETIN ALFA 10,000 UNIT/1 ML VIAL SC ONE (21:00)
--- NOTE | 2019-12-25 21:00 | NUR ---
Dialysis complete: 874mls removed from patient per Dialysis nurse. Patient resting in bed with breaths even and unlabored.
--- NOTE | 2019-12-25 21:05 | NUR ---
RIGHT GROIN INCISION SITE BLEED: PATIENTS RIGHT GROIN INCISION SITE SATURATED IN SANGUINOUS FLUID AFTER CHANGING CHUCKS UNDER THE PATIENT. APPLIED DIRECT PRESSURE AT INCISION SITE. CHARGE NURSES NOTIFIED. AFTER APPLYING DIRECT PRESSURE CHANGED PATIENTS DRESSING AT INCISION SITE WITH CLEAN GAUZE AND TEGADERM. SITE OF RIGHT GROIN IS SOFT TO THE TOUCH. WILL CONTINUE TO MONITOR.
--- NOTE | 2019-12-25 21:44 | NUR ---
Vancomycin held per Lab value: Vancomycin held per lab value of Vanco trough being 21 High. Vancomycin had been spiked, bag full. To waste Vancomycin.
[2019-12-25 22:00] VITALS: BP 93/57
[2019-12-25] MEDS: BRIMONIDINE 0.2% OPTH Soln 5ml EACHEYE SCH (22:05)
[2019-12-25] MEDS: DORZOLAMIDE HCL 2% OPTH(EYE) SOL 10ML EACHEYE SCH (22:07)
--- NOTE | 2019-12-25 22:15 | NUR ---
NO BLEEDING NOTED: NO BLEEDING TO THE RIGHT GROIN SITE NOTED AT THIS TIME.
--- NOTE | 2019-12-25 23:10 | NUR ---
Groin site: Small light pink area on groin site gauze noted. Circled, timed and dated. Will continue to monitor.
--- NOTE | 2019-12-25 23:17 | NUR ---
Wound care: Left foot dressing changed per MD orders. No compliant of pain during treatment.
[2019-12-26] MEDS: ACCU-CHEK COMFORT CURVE STRIP VI SCH ×6 (00:10→20:00)
--- NOTE | 2019-12-26 00:23 | NUR ---
Dialysis dressings removed: pressure dressings to left upper arm removed. No S/S of distress SOB noted, no bleeding noted. Patient resting in bed with breaths even and unlabored.
[2019-12-26] MEDS: InsuLIN REG 1unit/0.01ml Soln (100units/ml) SC SCH ×6 (04:00→20:00)
[2019-12-26] MEDS: D5W 5% 250 ML IV SCH (05:08)
[2019-12-26 05:57] VITALS: BP 102/68
--- NOTE | 2019-12-26 07:27 | NUR ---
Closing note: Patient resting in bed with breaths even and unlabored. No S/S of distress SOB or pain noted. Dressing to right groin at incision site is light pink and assessed with day shift nurse. Care endorsed to day shift nurse.
--- NOTE | 2019-12-26 07:30 | NUR ---
Opening Shift Note Assumed care of patient, awake and alert. No S/S of distress/SOB. Pt denies having any pain at this time. Bed in lowest and locked position with side rails up x2 and call light in reach. Instructed on POC and to call for assist PRN, will continue to monitor for changes Q1hr and PRN.
--- NOTE | 2019-12-26 08:00 | NUR ---
PT REFUSING IV. PT REFUSING A NEW IV AT THIS TIME. RN EDUCATED THE PATIENT ON RISKS AND BENEFITS ON OBTAINING A NEW IV SITE. PT VERBALIZED UNDERSTANDING. CURRENT IV IS PATENT.
[2019-12-26] MEDS: Glucerna Carbsteady SHAKE Vanilla 8oz PO SCH ×3 (08:22→17:54)
[2019-12-26 09:00] VITALS: BP 116/61
--- NOTE | 2019-12-26 09:18 | NUR ---
SPOKE TO PHARMACY. RN NOTIFIED THE PHARMACIST ON THE PATIENTS VANCOMYCIN TROUGH. PHARMACIST AWARE. PER PHARMACIST OK TO GIVE THE VANCOMYCIN.
[2019-12-26] MEDS: BRIMONIDINE 0.2% OPTH Soln 5ml EACHEYE SCH ×2 (10:32→22:21)
[2019-12-26] MEDS: cefTRIAXone 1GM/50ML D5W 50 ML IV SCH (10:32)
[2019-12-26] MEDS: DORZOLAMIDE HCL 2% OPTH(EYE) SOL 10ML EACHEYE SCH ×2 (10:32→22:22)
[2019-12-26] MEDS: DAKINS QUARTER STR 0.125% (NaHypochlorite) 473 ML TOPICAL SOL TOP SCH ×2 (10:33→22:00)
[2019-12-26] MEDS ORDERED: VANCOMYCIN 750mg/250ml 250 ML IV ONE (11:00)
--- NOTE | 2019-12-26 13:15 | NUR ---
SPOKE TO DR. MERAZ. NEW ORDERS RECEIVED, READ BACK AND VERIFIED. SEE EMR FOR ORDERS.
[2019-12-26 14:00] VITALS: BP 96/67
--- NOTE | 2019-12-26 14:10 | NUR ---
SPOKE TO DR. MERAZ. NEW ORDERS RECEIVED, READ BACK AND VERIFIED. SEE EMR FOR ORDERS.
[2019-12-26 14:38] LABS: Basophils # (auto) 0 10 ^3/uL (0-0.2); Eosinophils # (auto) 0.1 10 ^3/uL (0-0.8); Hemoglobin 8.6 g/dL (12.2-16.2); Lymphocytes # (auto) 0.5 10 ^3/uL (0.4-5.4); Monocytes # (auto) 0.6 10 ^3/uL (0-1.3); Neutrophils # (auto) 6.4 10 ^3/uL (1.6-8.6); White Blood Cell 7.7 10^3/uL (4.4-10.8)
[2019-12-26 14:40] LABS: Basophils % (auto) 0.6 % (0.0-2.0); Eosinophils % (auto) 0.9 % (0.0-7.0); Hematocrit 25.9 % (36.0-46.0); Lymphocytes % (auto) 7.1 % (10.0-50.0); Mean Corpuscular Hemoglobin 34.4 pg (28.0-32.0); Mean Corpuscular Hgb Conc. 33.3 g/dL (32.0-36.0); Mean Corpuscular Volume 103.4 fL (80.0-100.0); Monocytes % (auto) 7.4 % (0.0-12.0); Platelet Count (auto) 166 10^3/uL (140-450); Red Blood Cells 2.51 10^6/uL (4.0-5.20); Red Cell Distribution Width 17.2 % (11.8-14.3)
[2019-12-26 14:54] LABS: BUN/Creatinine Ratio 9.8; Calcium 7.3 mg/dL (8.5-10.1); Potassium 3.8 mmol/L (3.5-5.1)
[2019-12-26] MEDS: CALCIUM CARB 500 MG CHEW TAB PO PRN ×2 (15:19→22:23)
--- NOTE | 2019-12-26 17:30 | NUR ---
WOUND CARE WOUND CARE INITIATED TO THE LEFT FOOT WOUND AND SACRAL AREA, PER MD ORDERS.
[2019-12-26 18:35] VITALS: BP 100/53
--- NOTE | 2019-12-26 19:30 | NUR ---
Opening Shift Note Assumed care of patient, awake and alert. No S/S of distress/SOB noted. Pt denies having any pain at this time. Bed in lowest and locked position with side rails up x2 and call light in reach. Instructed on POC and to call for assist PRN. To turn [id number].
--- NOTE | 2019-12-26 20:00 | NUR ---
PATIENT REFUSING NEW IV. PATIENT REFUSING A NEW IV AT THIS TIME. RN EDUCATED THE PATIENT ON RISKS AND BENEFITS ON OBTAINING A NEW IV SITE. PT VERBALIZED UNDERSTANDING. CURRENT IV IS PATENT AND INTACT.
[2019-12-26 22:00] VITALS: BP 110/67
--- NOTE | 2019-12-26 23:50 | NUR ---
Wound care: Initiated wound care on left foot and sacrum wounds as MD ordered. Patient tolerated well.
--- NOTE | 2019-12-26 23:51 | NUR ---
Wound Photos taken: New wound photos taken and documented.
[2019-12-27] MEDS: ACCU-CHEK COMFORT CURVE STRIP VI SCH ×6 (00:15→19:47)
[2019-12-27] MEDS: InsuLIN REG 1unit/0.01ml Soln (100units/ml) SC SCH ×6 (04:00→19:47)
[2019-12-27 05:00] VITALS: BP 102/69
--- NOTE | 2019-12-27 08:00 | NUR ---
PT RESTING IN BED, NO DISTRESS NOTED, PT REPORTS NO PAIN AT THIS TIME. PT HAD SMALL AMOUNT BROWN LIQUID DIARRRHEA AND GAS. PT CLEANED, MOOKIE AREA AND BUTTOCKS CLEANED, Z GAURD AND OPTIFOAM APPLIED TO MULTIPLE WOUNDS RIGHT AND LEFT BUTTOCKS. PT REPOSITIONED TO LEFT SIDE, WILL CONTINUE TO MONITOR Q 1 HR AND PRN.
[2019-12-27 09:00] VITALS: BP 100/53
--- NOTE | 2019-12-27 11:24 | NUR ---
Nutrition Followup Notes Wt: 102.9 kg Pt was sleeping with no family by bedside. pt to have HD today. pt is currently on CCHO 60 gm renal std diet with glucerna 1 carton tid inadequate PO of < 50% x 4 per RN doc Est Energy needs: 5943-3146 kcals (20-23 kcal/kgBW), Est Protein needs: 115-126 gms/day (1.1-1.2 gm/kgBW). Will continue to monitor and reassess prn. LABS: BUN 26 H, CREAT 2.64 H, CA 7.3 L, GLU 145 H GI: pt had 1 BM today per RN doc BS: 12 high risk. Please refer to wound assessment report for full details. PES: Problem: 1) Obesity r/t energy intake in excess of energy needs aeb 210% IBW and BMI of 42.3 kg/m2 3) Altered nutrition related lab values r/t current/chronic medical condition aeb elev RFTs, mod hypoalbuminemia Comments Will continue to closely monitor pertinent labs, NPO status/PO intake and skin status prn. Will followup in 2-3 days 1) consider nephro carb steadyv1 carton bid instead of Glucerna if PO is low as pt on HD 2) Continue to closely monitor pt PO intake to meet at least 75% of meals. 3) Suggest a daily nephrovite with 500mg VitC BID. 4) Continue current plan of care
[2019-12-27] MEDS: Glucerna Carbsteady SHAKE Vanilla 8oz PO SCH ×3 (12:12→17:05)
[2019-12-27] MEDS: BRIMONIDINE 0.2% OPTH Soln 5ml EACHEYE SCH ×2 (12:21→21:54)
[2019-12-27] MEDS: DAKINS QUARTER STR 0.125% (NaHypochlorite) 473 ML TOPICAL SOL TOP SCH ×2 (12:21→21:55)
[2019-12-27] MEDS: DORZOLAMIDE HCL 2% OPTH(EYE) SOL 10ML EACHEYE SCH ×2 (12:21→21:55)
[2019-12-27] MEDS: LOPERAMIDE HCL 2 MG CAP PO PRN (12:53)
[2019-12-27 13:00] VITALS: BP 96/56
--- NOTE | 2019-12-27 13:55 | NUR ---
PT REPORTS 6/10 PAIN ON HER BUTTOCKS, PRN PAIN MED GIVEN. PT REPOSITIONED TO RIGHT SIDE.
--- NOTE | 2019-12-27 16:00 | NUR ---
PT SLEEPING IN BED, NO DISTRESS NOTED. PT REPOSITIONED TO LEFT SIDE, WILL CONTINUE TO MONITOR.
[2019-12-27 17:00] VITALS: BP 95/54
--- NOTE | 2019-12-27 20:00 | NUR ---
Opening Shift Note Assumed care of patient, awake, alert and oriented. No S/S of distress/SOB or pain. Instructed on POC and to call for assist PRN. Bed locked, in lowest position, call light within reach, side rails up x2. Will continue to monitor for changes Q1hr and PRN.
--- NOTE | 2019-12-27 21:30 | NUR ---
Dressing change Dressing on left toe changed per MD orders. Patient tolerated well. Will continue to monitor.
[2019-12-27 22:00] VITALS: BP 95/62
[2019-12-28] MEDS: ACCU-CHEK COMFORT CURVE STRIP VI SCH ×6 (02:05→20:46)
[2019-12-28] MEDS: InsuLIN REG 1unit/0.01ml Soln (100units/ml) SC SCH ×6 (04:00→20:52)
[2019-12-28 05:00] VITALS: BP 97/59
--- NOTE | 2019-12-28 06:30 | NUR ---
CONSENTS TO BE SIGNED PATIENT REQUESTED TO SPEAK WITH MD BEFORE SIGNING. DAY SHIFT RN WILL BE NOTIFIED
[2019-12-28 06:38] LABS: Eosinophils # (auto) 0.1 10 ^3/uL (0-0.8); Eosinophils % (auto) 1.1 % (0.0-7.0); Lymphocytes # (auto) 0.5 10 ^3/uL (0.4-5.4); Monocytes # (auto) 0.4 10 ^3/uL (0-1.3)
[2019-12-28 06:40] LABS: Basophils # (auto) 0.1 10 ^3/uL (0-0.2); Basophils % (auto) 0.8 % (0.0-2.0); Hematocrit 26.8 % (36.0-46.0); Hemoglobin 8.7 g/dL (12.2-16.2); Lymphocytes % (auto) 7.7 % (10.0-50.0); Mean Corpuscular Hemoglobin 33.5 pg (28.0-32.0); Mean Corpuscular Hgb Conc. 32.5 g/dL (32.0-36.0); Mean Corpuscular Volume 103.2 fL (80.0-100.0); Monocytes % (auto) 6.3 % (0.0-12.0); Neutrophils # (auto) 5.6 10 ^3/uL (1.6-8.6); Neutrophils % (auto) 84.1 % (37.0-80.0); Platelet Count (auto) 175 10^3/uL (140-450); Red Cell Distribution Width 16.8 % (11.8-14.3); White Blood Cell 6.7 10^3/uL (4.4-10.8)
[2019-12-28 06:47] LABS: INR 1.19 (0.9-1.15); Partial Thromboplastin Time 29.7 sec (23.64-32.05)
[2019-12-28 06:55] LABS: BUN/Creatinine Ratio 10.9; Calcium 7.4 mg/dL (8.5-10.1); Potassium 3.8 mmol/L (3.5-5.1)
[2019-12-28] MEDS ORDERED: SODIUM CHL 0.9% 1000 ML BAG XX ONE (07:00)
--- NOTE | 2019-12-28 07:03 | NUR ---
Patient had a BM Cleaned patient, changed linens. Will continue with care.
--- NOTE | 2019-12-28 07:30 | NUR ---
Opening Shift Note Assumed care of patient, awake, alert and oriented. No S/S of distress/SOB or pain. Instructed on POC and to call for assist PRN. Bed locked, in lowest position, call light within reach, side rails up x2. Will continue to monitor for changes Q1hr and PRN. Patient awaiting angiogram procedure this AM.
[2019-12-28] MEDS: Glucerna Carbsteady SHAKE Vanilla 8oz PO SCH ×3 (08:00→18:00)
--- NOTE | 2019-12-28 08:40 | NUR ---
Patient is off unit, in labor relations supervisor for repeat angiogram. Per patient she will sign consent once MD explains procedure to her.
[2019-12-28 09:11] VITALS: BP 100/69
[2019-12-28] MEDS ORDERED: fentaNYL CITRATE 100 MCG/2 ML VL ONE (09:20)
[2019-12-28] MEDS ORDERED: ANGIOMAX 250 MG VIAL IV ONE (09:20)
[2019-12-28] MEDS ORDERED: SODIUM CHL 0.9% 50 ML ONE (09:20)
[2019-12-28] MEDS ORDERED: MIDAZOLAM HCL 1MG/1ML-2 ML VIAL ONE (09:20)
[2019-12-28] MEDS ORDERED: LIDOCAINE 2%HCL (LOCAL ANESTH.) INJ 20ML MDV ONE (09:21)
[2019-12-28] MEDS ORDERED: IODIXANOL 320MG/ML 100ML BTL IV ONE (09:21)
[2019-12-28] MEDS ORDERED: PHENYLEPHRINE HCL 10 MG/ML VL ONE (10:26)
--- NOTE | 2019-12-28 10:38 | NUR ---
PATIENT IS STILL OFF UNIT FOR PROCEDURE. WILL RESUME SCHEDULED MEDICATION UPON RETURN TO UNIT.
[2019-12-28] MEDS: BRIMONIDINE 0.2% OPTH Soln 5ml EACHEYE SCH ×2 (12:11→20:46)
[2019-12-28] MEDS: DORZOLAMIDE HCL 2% OPTH(EYE) SOL 10ML EACHEYE SCH ×2 (12:12→20:46)
[2019-12-28] MEDS: DAKINS QUARTER STR 0.125% (NaHypochlorite) 473 ML TOPICAL SOL TOP SCH (12:12)
[2019-12-28 13:00] VITALS: BP 98/66
--- NOTE | 2019-12-28 13:00 | NUR ---
ANGIOGRAM SITE ASSESSED WHILE PATIENT LAYING FLAT. PRESSURE DRESSING IN PLACE, NO S/S BLEEDING PATIENT ABLE TO SIT SLIGHTLY ELEVATE AT THIS TIME.
--- NOTE | 2019-12-28 13:30 | NUR ---
DIALYSIS NURSE AT BEDSIDE.
[2019-12-28] MEDS ORDERED: ALBUMIN 25% 100 ML IV ONE (13:43)
[2019-12-28 16:46] VITALS: BP 99/53
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
--- NOTE | 2019-12-28 20:00 | NUR ---
Opening Shift Note Assumed care of patient, awake, alert and oriented. No S/S of distress/SOB or pain. Left groin incision site clean, dry and intact, no pain or ecchymosis to the site. Bed locked, in lowest position, call light within reach, side rails up x2. Instructed on POC and to call for assist PRN. Will continue to monitor for changes Q1hr and PRN.
[2019-12-28] MEDS: LOPERAMIDE HCL 2 MG CAP PO PRN (20:53)
[2019-12-28] MEDS ORDERED: EPOETIN ALFA 10,000 UNIT/1 ML VIAL SC ONE (21:00)
--- NOTE | 2019-12-28 21:30 | NUR ---
Dressing on fistula removed No signs of bleeding. No distress noted for the patient. Will continue to monitor
[2019-12-28 22:00] VITALS: BP 101/64
--- NOTE | 2019-12-28 23:23 | NUR ---
PATIENT HAD BM Patient was cleaned well. All linen was replaced at this time. New gown provided to patient. Z-guard applied to sacrum area. Patient tolerated well. Incision site to left groin remains c/d/i. Will continue care
[2019-12-29] MEDS: DAKINS QUARTER STR 0.125% (NaHypochlorite) 473 ML TOPICAL SOL TOP SCH ×3 (00:08→22:45)
[2019-12-29] MEDS: CALCIUM CARB 500 MG CHEW TAB PO PRN ×2 (00:09→22:45)
[2019-12-29] MEDS: ACCU-CHEK COMFORT CURVE STRIP VI SCH ×6 (00:09→20:39)
--- NOTE | 2019-12-29 00:26 | NUR ---
DRESSING CHANGE Dressing change to left foot as per MD orders. Patient tolerated well. Will continue with care.
[2019-12-29] MEDS: InsuLIN REG 1unit/0.01ml Soln (100units/ml) SC SCH ×6 (04:00→20:00)
[2019-12-29 05:00] VITALS: BP 99/69
[2019-12-29 05:59] LABS: Basophils # (auto) 0.1 10 ^3/uL (0-0.2); Eosinophils # (auto) 0 10 ^3/uL (0-0.8); Eosinophils % (auto) 0.6 % (0.0-7.0); Hemoglobin 8.7 g/dL (12.2-16.2); Lymphocytes # (auto) 0.5 10 ^3/uL (0.4-5.4); Monocytes # (auto) 0.4 10 ^3/uL (0-1.3); Monocytes % (auto) 5.3 % (0.0-12.0); Neutrophils # (auto) 6.2 10 ^3/uL (1.6-8.6); White Blood Cell 7.2 10^3/uL (4.4-10.8)
[2019-12-29 06:02] LABS: Basophils % (auto) 0.8 % (0.0-2.0); Hematocrit 26.8 % (36.0-46.0); Lymphocytes % (auto) 7.2 % (10.0-50.0); Mean Corpuscular Hemoglobin 33.7 pg (28.0-32.0); Mean Corpuscular Hgb Conc. 32.6 g/dL (32.0-36.0); Mean Corpuscular Volume 103.4 fL (80.0-100.0); Neutrophils % (auto) 86.1 % (37.0-80.0); Platelet Count (auto) 196 10^3/uL (140-450); Red Blood Cells 2.59 10^6/uL (4.0-5.20); Red Cell Distribution Width 16.7 % (11.8-14.3)
[2019-12-29 06:29] LABS: BUN/Creatinine Ratio 10.4; Calcium 7.6 mg/dL (8.5-10.1); Potassium 3.6 mmol/L (3.5-5.1)
[2019-12-29] MEDS: Glucerna Carbsteady SHAKE Vanilla 8oz PO SCH ×3 (08:51→18:00)
[2019-12-29 09:00] VITALS: BP 105/55
[2019-12-29] MEDS: BRIMONIDINE 0.2% OPTH Soln 5ml EACHEYE SCH ×2 (10:46→22:45)
[2019-12-29] MEDS: DORZOLAMIDE HCL 2% OPTH(EYE) SOL 10ML EACHEYE SCH ×2 (10:46→22:45)
[2019-12-29 13:00] VITALS: BP 98/65
--- NOTE | 2019-12-29 13:55 | NUR ---
while preparing patient for discharge, patient O2 saturation is noted to be 89 on room air and she reports having SOB. In house MD paged and informed of changes. MD placed new orders for CXR, ABG and to hold discharge.
--- NOTE | 2019-12-29 16:00 | NUR ---
Respiratory note: PATIENT TAKEN OFF OXYGEN AT 1545 FOR ROOM AIR ABG. MATTY WATERMAN NOTIFIED, AT THAT TIME, OF REMOVAL OF NASAL CANNULA FOR ROOM AIR GAS. ABG DRAWN AT 1557 AND PATIENT WAS PLACED BACK ON 2LPM OXYGEN VIA NASAL CANNULA IMMEDIATELY AFTER BLOOD DRAW.
--- NOTE | 2019-12-29 16:02 | NUR ---
Respiratory note: ROOM AIR ABG DRAWN AND RESULTS REPORTED TO MATTY LOCKWOOD. PO2 ON ROOM AIR WAS 48.5, THIS QUALIFIES HER FOR HOME O2. ALL RESULTS REPORTED TO PROVIDER.
--- NOTE | 2019-12-29 16:20 | NUR ---
re-assessment Per consult home health nurse lela, med management, wound care and PT. Per Herminio patients nephew he has no preference on who provides service. MD order has been sent to [facility]. Per Maame service will start within 48 hours of service. Herminio has been notified. Addendum: 01/01/20 at 1623 by Destiny Quiñones Amended: Links added.
[2019-12-29 16:58] VITALS: BP 86/55
--- NOTE | 2019-12-29 17:20 | NUR ---
PER DR. MCNEAL, DISHCARGE TO BE HELD NEW ORDER FOR D-DIMER PLACED.
[2019-12-29 22:00] VITALS: BP 98/51
--- NOTE | 2019-12-29 22:50 | NUR ---
DRESSING CHANGE Dressing change to left foot as per MD orders. Patient tolerated well. No signs or symptoms of distress or pain.
--- NOTE | 2019-12-29 23:12 | NUR ---
Spoke with Hospitalist about patients elevated D-dimer. Was informed that he would look into the patients chart. No new orders received.
[2019-12-30] MEDS: InsuLIN REG 1unit/0.01ml Soln (100units/ml) SC SCH ×5 (00:35→15:59)
[2019-12-30] MEDS: ACCU-CHEK COMFORT CURVE STRIP VI SCH ×5 (00:36→15:59)
--- NOTE | 2019-12-30 02:52 | NUR ---
PATIENT HAD A BM Semi formed stool noted. Changed underpad, gown and linens. Patient tolerated well. Will continue to monitor
[2019-12-30 05:00] VITALS: BP 95/68
--- NOTE | 2019-12-30 08:01 | NUR ---
Opening Note Assumed pt care from NOC RN. Pt is a/ox4 with no s/s of distress or SOB. Pt is currently sitting upright in bed withe no complaint at this time. Pt is currently on 2L via NC; pt states that she is a "little" SOB, but nothing new or worse since yesterday. Dressing to L foot is clean, dry and intact. Discussed POC with pt; pt verbalized understanding. Safety measures maintained with call light within reach, bed in lowest position and side rails up. Will continue to monitor.
[2019-12-30] MEDS: Glucerna Carbsteady SHAKE Vanilla 8oz PO SCH ×2 (08:04→11:56)
[2019-12-30 09:00] VITALS: BP 98/50
[2019-12-30] MEDS: BRIMONIDINE 0.2% OPTH Soln 5ml EACHEYE SCH (09:21)
[2019-12-30] MEDS: DORZOLAMIDE HCL 2% OPTH(EYE) SOL 10ML EACHEYE SCH (09:21)
[2019-12-30] MEDS: DAKINS QUARTER STR 0.125% (NaHypochlorite) 473 ML TOPICAL SOL TOP SCH (09:21)
[2019-12-30] MEDS: CALCIUM CARB 500 MG CHEW TAB PO PRN (09:26)
--- NOTE | 2019-12-30 10:00 | NUR ---
D/C planning Per consult for home O2 at 2 l/min. Faxed clinical information to [facility]. Per Venus with [employer] portable oxygen will be deliver to bedside between 11:00-13:00.
[2019-12-30] MEDS ORDERED: APIXABAN 2.5 MG TAB PO ONE (10:45)
--- NOTE | 2019-12-30 12:47 | NUR ---
Home O2 at Bedside
--- NOTE | 2019-12-30 13:09 | NUR ---
Home Medications Pt is unaware of what her current medications are; she is aware of the type of some medications Eliquis QPM Alphagan eye drops Truspot eye drops Insulin (unaware of type) BP medications (unaware of type)
[2019-12-30] MEDS ORDERED: APIX2.5T PO (13:29)
--- NOTE | 2019-12-30 14:46 | NUR ---
Transportation Pt to be picked up at 1600. Will notify pt's family.
[2019-12-30 14:54] VITALS: BP 101/59
--- NOTE | 2019-12-30 15:10 | NUR ---
D/C Photos Taken For Reference Wound care provided at this time; pt tolerated well.
--- NOTE | 2019-12-30 15:33 | NUR ---
Nutrition Followup Notes Wt: 94.5 kg Pt was sleeping with no family by bedside. pt is currently on CCHO 60 gm renal std diet with fair appetite aeb ave 63% PO intake per RN doc. Will continue to closely monitor pertinent labs, PO intake and skin status prn. Will followup in 3-5 days Est Energy needs: 4248-4783 kcals (20-23 kcal/kgBW), Est Protein needs: 115-126 gms/day (1.1-1.2 gm/kgBW). Will continue to monitor and reassess prn. LABS: Alb 2.7 L GLU 120 H GI: pt had 1 BM today per RN doc BS: 21 low risk. Please refer to wound assessment report for full details. PES: Problem: 1) Obesity r/t energy intake in excess of energy needs aeb 210% IBW and BMI of 42.3 kg/m2 2) Altered nutrition related lab values r/t current/chronic medical condition aeb elev RFTs, mod hypoalbuminemia Comments Will continue to closely monitor pertinent labs, NPO status/PO intake and skin status prn. Will followup in 3-5 days 1) Consider Nephro Carb Steady, 1 carton bid instead of Glucerna if PO is low as pt on HD 2) Continue to closely monitor pt PO intake to meet at least 75% of meals. 3) Suggest a daily Nephrovite with 500mg VitC BID. 4) Continue current plan of care
--- NOTE | 2019-12-30 15:50 | NUR ---
IV and Tele 38 D/C'ed Iv to pt's R AC removed. Catheter was removed fully intact. Site is asymptomatic; pressure was applied to suite for 3 minutes with gauze and then wrapped in coban. Pt instructed to keep dressing on for 30 minutes Tele 38 removed and sent back to ICU. Staff made aware.
--- NOTE | 2019-12-30 16:52 | NUR ---
Pt D/C'ed Off Unit Pt d/c'ed off unit via transportation service. Pt is a/ox4 with no s/s of distress or SOB. Pt transported on own 2L of O2. Pt provided all follow up information, all prescriptions, and all belongings. All questions were answered upon d/c. Family members aware of d/c and transportation home IV and tele box were d/c'ed prior to d/c.
[2019-12-30] MEDS ORDERED: APIXABAN 2.5 MG TAB PO SCH (22:00)
== END 2019-12-30 16:52 | disposition home or self-care (01) | DRG 710 ==
LOC: EDBD 20:53 → ER 20:53 → TELE 20:54 → DOU IN ICU 12-20 09:59 → TELE-CENTR 12-25 15:00
PROVIDERS: ADMIT Hospitalist; ATTEND Internal Medicine
PROC: 5A1D70Z Performance of Urinary Filtration, Intermittent, Less than 6 Hours Per Day (ICD-10-PCS; 2019-12-21)
PROC: 0Y6U0Z0 Detachment at Left 3rd Toe, Complete, Open Approach (ICD-10-PCS; 2019-12-23)
PROC: 5A1D70Z Performance of Urinary Filtration, Intermittent, Less than 6 Hours Per Day (ICD-10-PCS; 2019-12-23)
PROC: 5A1D70Z Performance of Urinary Filtration, Intermittent, Less than 6 Hours Per Day (ICD-10-PCS; principal; 2019-12-25)
PROC: B41FYZZ Fluoroscopy of Right Lower Extremity Arteries using Other Contrast (ICD-10-PCS; 2019-12-25)
PROC: 047R3ZZ Dilation of Right Posterior Tibial Artery, Percutaneous Approach (ICD-10-PCS; 2019-12-28)
PROC: B41GYZZ Fluoroscopy of Left Lower Extremity Arteries using Other Contrast (ICD-10-PCS; 2019-12-28)
PROC: 047T3ZZ Dilation of Right Peroneal Artery, Percutaneous Approach (ICD-10-PCS; 2019-12-28)
PROC: 5A1D70Z Performance of Urinary Filtration, Intermittent, Less than 6 Hours Per Day (ICD-10-PCS; 2019-12-28)
PROC: B41FYZZ Fluoroscopy of Right Lower Extremity Arteries using Other Contrast (ICD-10-PCS; 2019-12-28)
DX: A41.9 Sepsis, unspecified organism (principal); G92 Toxic encephalopathy; E44.0 Moderate protein-calorie malnutrition; L89.156 Pressure-induced deep tissue damage of sacral region; D68.69 Other thrombophilia; E11.622 Type 2 diabetes mellitus with other skin ulcer; I95.9 Hypotension, unspecified; L89.316 Pressure-induced deep tissue damage of right buttock; D89.9 Disorder involving the immune mechanism, unspecified; I50.42 Chronic combined systolic (congestive) and diastolic (congestive) heart failure; N39.0 Urinary tract infection, site not specified; D64.9 Anemia, unspecified; E87.6 Hypokalemia; H54.7 Unspecified visual loss; H91.90 Unspecified hearing loss, unspecified ear; I48.91 Unspecified atrial fibrillation; M50.221 Other cervical disc displacement at C4-C5 level; M50.222 Other cervical disc displacement at C5-C6 level; N18.6 End stage renal disease; L97.509 Non-pressure chronic ulcer of other part of unspecified foot with unspecified severity; I25.10 Atherosclerotic heart disease of native coronary artery without angina pectoris; I73.9 Peripheral vascular disease, unspecified; Z99.2 Dependence on renal dialysis; Z79.01 Long term (current) use of anticoagulants; Z79.899 Other long term (current) drug therapy; I11.0 Hypertensive heart disease with heart failure
CPT/HCPCS: 36415; 36600; 37224; 37228; 70450; 71045; 72125; 73700; 75710; 75716; 76856; 80048; 80053; 80202; 80320; 81001; 82378; 82805; 82962; 83036; 83605; 83735; 84443; 84484; 85025; 85379; 85610; 85730; 86301; 86304; 86850; 86900; 86901; 87040; 87045; 87070; 87075; 87081; 87086; 87205; 87427; 87493; 90935; 93005; 93306; 93926; 93970; 96365; 99152; 99153; G0378; J0690; J0696; J0885; J1642; J1815; J2001; J2250; J2704; J3490; J7060; P9047; Q9967

== ENCOUNTER 2020-02-01 19:24 | Emergency (ER) | payer MEDICARE, MEDICAID ==
[~2020-02-01] VITALS: Ht 165.1 cm; Wt 86.2 kg
[~2020-02-01 19:24] MED LIST: APIX2.5T PO
[2020-02-02] MEDS ORDERED: cefTRIAXone 1GM/50ML D5W 50 ML IV ONE (01:30)
[2020-02-02 03:31] VITALS: BP 88/64
[2020-02-02] MEDS ORDERED: SODIUM CHLORIDE 0.9% 500 ML IV ONE (03:45)
== END 2020-02-02 04:46 | disposition home or self-care (01) ==
LOC: EDBD 19:24 → ER 19:24
DX: J38.3 Other diseases of vocal cords (principal); R47.01 Aphasia; E11.22 Type 2 diabetes mellitus with diabetic chronic kidney disease; I12.0 Hypertensive chronic kidney disease with stage 5 chronic kidney disease or end stage renal disease; N18.6 End stage renal disease
CPT/HCPCS: 70490; 96365; 96366; 99284; J0696; J7030

== ENCOUNTER 2020-03-07 01:09 | Inpatient (IN) | payer MEDICARE, MEDICAID ==
[~2020-03-07] VITALS: Ht 165.1 cm; Wt 99.2 kg
[2020-03-07] MEDS ORDERED: SODIUM CHLORIDE 0.9% 500 ML IV ONE (01:30)
[2020-03-07] MEDS: NOREPINEPHRINE 8 MG/250ML KIT 250 ML IV SCH ×2 (05:10→20:52)
[2020-03-07 05:43] LABS: Hemoglobin 10.3 g/dL (12.2-16.2); Mean Corpuscular Hgb Conc. 29.5 g/dL (32.0-36.0); Mean Corpuscular Volume 105.1 fL (80.0-100.0); Platelet Count (auto) 170 10^3/uL (140-450); Red Blood Cells 3.33 10^6/uL (4.0-5.20); Red Cell Distribution Width 17.8 % (11.8-14.3); White Blood Cell 18.1 10^3/uL (4.4-10.8)
[2020-03-07 05:46] LABS: Basophils % (manual) 0 (0.0-2.0); Blast Cells 0; Eosinophils % (manual) 0 (0-7); Metamyelocytes % 0; Promyelocytes % 0; Reactive Lymphocytes 0
[2020-03-07 05:47] LABS: Calcium 8.9 mg/dL (8.5-10.1); Chloride 102 mmol/L (98-107); Sodium 138 mmol/L (136-145)
[2020-03-07 05:56] LABS: Alanine Aminotransferase 10 U/L (13-56); Albumin 1.9 g/dL (3.4-5.0); Alkaline Phosphatase 168 U/L (45-117); Anion Gap 3 (5-15); Aspartate Aminotransferase 14 U/L (15-37); BUN/Creatinine Ratio 7.6; Bilirubin, Total 0.8 mg/dL (0.2-1.0); Blood Urea Nitrogen 30 mg/dL (7-18); Carbon Dioxide 33 mmol/L (21-32); GFR African American 14 mL/min; GFR Non-African American 12 mL/min; Glucose 97 mg/dL (74-106); Magnesium 2.4 mg/dL (1.6-2.6); Total Protein 7.1 g/dL (6.4-8.2)
[2020-03-07 06:00] LABS: INR 1.83 (0.9-1.15); Partial Thromboplastin Time 49.3 sec (23.64-32.05)
[2020-03-07 06:17] LABS: Potassium 2.8 mmol/L (3.5-5.1)
[2020-03-07 06:22] LABS: Band Neutrophils % (manual) 8; Lymphocytes % (manual) 4 (10.0-50.0); Monocytes % (manual) 2 (0-12); Myelocytes % 1
[2020-03-07] MEDS ORDERED: ACETAMINOPHEN 500 MG TAB PO PRN (06:45)
[2020-03-07] MEDS ORDERED: DEXTROSE (50%) 50ML SYRG IV PRN (06:45)
[2020-03-07] MEDS ORDERED: DOCUSATE SOD 100 MG CAP PO PRN (06:45)
[2020-03-07] MEDS ORDERED: ONDANSETRON HCL 4 MG/2 ML VIAL IV PRN (06:45)
[2020-03-07] MEDS: POTASSIUM CHL 20MEQ/100ML 100 ML IV SCH ×2 (06:54→08:48)
[2020-03-07] MEDS ORDERED: METOPROLOL TARTRATE 1MG/1ML-5ML VIAL IV SCH (08:00)
[2020-03-07] MEDS ORDERED: SODIUM CHLORIDE 0.9% 1,000 ML IV ONE ×2 (09:45)
[2020-03-07 10:00] VITALS: BP 91/50
[2020-03-07] MEDS ORDERED: ENOXAPARIN SOD 30 MG/0.3 ML SYRINGE SC SCH (10:00)
[2020-03-07] MEDS ORDERED: DOXYCYCLINE 100 MG TAB/CAP PO SCH (10:00)
[2020-03-07] MEDS ORDERED: ENOXAPARIN SOD 40 MG/0.4 ML SYRINGE SC SCH (10:00)
[2020-03-07] MEDS: ZINC SULFATE 220mg CAP or TAB PO SCH (10:00)
[2020-03-07] MEDS: ASCORBIC ACID 1,000 MG TAB PO SCH (10:00)
[2020-03-07] MEDS ORDERED: B-COTAB10 PO (10:24)
[2020-03-07] MEDS ORDERED: BRIM0.2S17 EACHEYE (10:27)
[2020-03-07] MEDS ORDERED: DORZ2SOL EACHEYE (10:27)
[2020-03-07] MEDS ORDERED: LOPE2TAB78 PO (10:28)
[2020-03-07] MEDS ORDERED: ACET1CAP14 PO (10:28)
[2020-03-07] MEDS: SODIUM CHLORIDE 0.9% 1,000 ML IV SCH ×2 (10:37→23:54)
[2020-03-07 10:38] LABS: Cholesterol 81 mg/dL (< 200); HDL Cholesterol 23 mg/dL (40-59); LDL Cholesterol 36 mg/dL (< 100); Triglycerides 105 mg/dL (< 150)
[2020-03-07] MEDS: InsuLIN REG 1unit/0.01ml Soln (100units/ml) SC SCH ×2 (12:00→18:37)
[2020-03-07 12:12] LABS: Urine Bacteria MANY /hpf (None Seen); Urine WBC 18635 /hpf (0 - 5)
[2020-03-07 12:14] LABS: Urine Blood 3+ /uL (Negative); Urine Specific Gravity 1.035 (1.001-1.035)
[2020-03-07] MEDS ORDERED: DIGOXIN (250MCG/ML) 2 ML AMPULE IV SCH ×2 (12:15→12:45)
[2020-03-07 12:22] LABS: CRP High Sensitivity 15.9 mg/dL (< 0.3)
[2020-03-07] MEDS: ACCU-CHEK COMFORT CURVE STRIP VI SCH ×2 (12:35→18:36)
[2020-03-07] MEDS: ALBUMIN 25% 100 ML IV SCH ×2 (13:15→16:41)
[2020-03-07] MEDS: PHENYLEPHRINE IV 250 ML IV SCH ×2 (13:28→20:49)
[2020-03-07] MEDS ORDERED: ETOMIDATE (2MG/ML) 20ML VIAL IV ONE ×2 (13:41→14:15)
[2020-03-07] MEDS ORDERED: MIDAZOLAM HCL 5 MG/ML-1ML VIAL ONE (13:41)
[2020-03-07] MEDS ORDERED: MIDAZOLAM DRIP 50 mg/50mL 50 ML IV ONE (13:48)
[2020-03-07 13:50] VITALS: BP 93/45
[2020-03-07] MEDS: MIDAZOLAM DRIP 50 mg/50mL 50 ML IV SCH ×2 (13:55→22:12)
[2020-03-07] MEDS: ALBUTEROL SULF HFA 90MCG INH 200DOSE IN SCH ×2 (14:00→22:00)
[2020-03-07] MEDS ORDERED: PANTOPRAZOLE 40 MG/10 ML VIAL INJ IV ONE (14:00)
[2020-03-07] MEDS ORDERED: MIDAZOLAM HCL 5 MG/ML-1ML VIAL IV ONE (14:15)
[2020-03-07 15:13] LABS: Hematocrit 34.1 % (36.0-46.0); Platelet Count (auto) 161 10^3/uL (140-450)
[2020-03-07 15:15] LABS: Hemoglobin 10.3 g/dL (12.2-16.2); Mean Corpuscular Hgb Conc. 30.3 g/dL (32.0-36.0); Mean Corpuscular Volume 102.5 fL (80.0-100.0); Red Blood Cells 3.33 10^6/uL (4.0-5.20); Red Cell Distribution Width 17.4 % (11.8-14.3); White Blood Cell 19.3 10^3/uL (4.4-10.8)
[2020-03-07 15:24] LABS: Basophils % (manual) 0 (0.0-2.0); Blast Cells 0; Eosinophils % (manual) 0 (0-7); Metamyelocytes % 0; Myelocytes % 0; Promyelocytes % 0; Reactive Lymphocytes 0
[2020-03-07 15:30] LABS: BUN/Creatinine Ratio 7.3; Potassium 3.2 mmol/L (3.5-5.1)
[2020-03-07] MEDS ORDERED: VANCOMYCIN PER PHARMACY 0 MG IV SCH (17:00)
[2020-03-07] MEDS ORDERED: POTASSIUM EFFERVESENT TAB 25 MEQ GT ONE (17:00)
[2020-03-07] MEDS ORDERED: VANCOMYCIN 1GM/250ML 250 ML IV ONE (17:15)
[2020-03-07 18:55] LABS: Band Neutrophils % (manual) 6; Lymphocytes % (manual) 2 (10.0-50.0); Monocytes % (manual) 5 (0-12)
[2020-03-07 19:10] VITALS: BP 113/47
[2020-03-07 20:00] VITALS: BP 93/40
[2020-03-07 21:50] VITALS: BP 127/50
[2020-03-07] MEDS: fentaNYL Drip 2500mCg/250mlNS 250 ML IV SCH (22:44)
[2020-03-07] MEDS: PIPERACILLIN-TAZOB 2.25GM 50 ML IV SCH (22:50)
[2020-03-07] MEDS: PANTOPRAZOLE 40 MG/10 ML VIAL INJ IV SCH (22:50)
[2020-03-07 22:52] LABS: INR 2.72 (0.9-1.15); Partial Thromboplastin Time 48.1 sec (23.64-32.05)
[2020-03-08] VITALS (24 sets, daily range): BP systolic 71–124; BP diastolic 30–56
[2020-03-08] MEDS: ACCU-CHEK COMFORT CURVE STRIP VI SCH ×4 (00:10→18:00)
[2020-03-08] MEDS: InsuLIN REG 1unit/0.01ml Soln (100units/ml) SC SCH ×4 (00:17→18:03)
[2020-03-08] MEDS: NOREPINEPHRINE 8 MG/250ML KIT 250 ML IV SCH (00:52)
[2020-03-08] MEDS: POTASSIUM CHL 20MEQ/100ML 100 ML IV SCH ×4 (01:46→13:45)
[2020-03-08] MEDS: PHENYLEPHRINE IV 250 ML IV SCH ×2 (05:22→09:00)
[2020-03-08] MEDS: MIDAZOLAM DRIP 50 mg/50mL 50 ML IV SCH ×3 (05:23→22:00)
[2020-03-08] MEDS: ALBUTEROL SULF 2.5 MG/0.5ML(0.5%) NEB SOLN NEB SCH ×3 (06:22→18:22)
[2020-03-08 08:23] LABS: Hemoglobin 10.2 g/dL (12.2-16.2); Platelet Count (auto) 153 10^3/uL (140-450)
[2020-03-08 08:25] LABS: Hematocrit 32.8 % (36.0-46.0); Mean Corpuscular Hemoglobin 31.2 pg (28.0-32.0); Mean Corpuscular Hgb Conc. 31.1 g/dL (32.0-36.0); Mean Corpuscular Volume 100.2 fL (80.0-100.0); Red Blood Cells 3.28 10^6/uL (4.0-5.20); Red Cell Distribution Width 16.7 % (11.8-14.3); White Blood Cell 17.8 10^3/uL (4.4-10.8)
[2020-03-08 08:29] LABS: Basophils % (manual) 0 (0.0-2.0); Blast Cells 0; Eosinophils % (manual) 0 (0-7); Metamyelocytes % 0; Myelocytes % 0; Promyelocytes % 0; Reactive Lymphocytes 0
[2020-03-08 08:43] LABS: Calcium 8.3 mg/dL (8.5-10.1)
[2020-03-08 08:46] LABS: BUN/Creatinine Ratio 7.9; Bilirubin, Total 2.6 mg/dL (0.2-1.0); Total Protein 5.9 g/dL (6.4-8.2)
[2020-03-08 08:52] LABS: Potassium 2.9 mmol/L (3.5-5.1)
[2020-03-08 09:49] LABS: Band Neutrophils % (manual) 6; Lymphocytes % (manual) 4 (10.0-50.0); Monocytes % (manual) 6 (0-12)
[2020-03-08] MEDS: PANTOPRAZOLE 40 MG/10 ML VIAL INJ IV SCH ×2 (10:00→22:52)
[2020-03-08] MEDS ORDERED: VANCOMYCIN 1GM/250ML 250 ML IV ONE (10:30)
[2020-03-08] MEDS: ASCORBIC ACID 1,000 MG TAB PO SCH (11:31)
[2020-03-08] MEDS: ZINC SULFATE 220mg CAP or TAB PO SCH (11:31)
[2020-03-08] MEDS: PIPERACILLIN-TAZOB 2.25GM 50 ML IV SCH ×2 (11:31→22:52)
--- NOTE | 2020-03-08 12:40 | NUR ---
WOUND CARE NOTE: Wound care in to see patient per wound care request regarding wounds that are noted present on admission. Patient is 70 years old female with admitting diagnosis of Suspected Covid Infection, ESRD, Sepsis. Patient is resting in ED bed #8. Patient is intubated, sedated and mechanically ventilated. Patient appears to be in no pain using Liu Velasco Faces pain Scale. Her Ellis score is 12. Skin/wound assessment done with the assistance of patient's nurse, MATTY Hernandez. Noted patient's bilateral forearm is ecchymotic and edematous. Bedside nurse reported that she wrapped patient's arm as patient has bleeding puncture wounds to arms from IV/blood draws. Patient's Rt posterior thigh (8.5x10cm) and Sacral/buttocks ([id number]) has open full thickness wound with no measurable depth. Wound beds are red with black and yellow soft slough, fabiana wound is dark red with minimal sanguinous drainage, no odor noted. Patient's Rt posterior thigh and sacral wound are Unstageable Pressure Injury. Cleansed Rt thigh and sacral wounds with wound cleanser, patted dry with gauze, applied Thera honey gauze and covered Rt thigh wound with large Opti foam gentle dressing and sacral wound covered with Opti foam sacral dressing. Patient's lower buttocks noted with moisture associated skin damage. Her Rt lateral lower abdominal fold noted with intertrigo and skin tear; cleansed and applied Z Guard cream. Photograph of patient's wounds are taken for reference. Patient tolerated well, repositioned patient for comfort, redistributed pressure points with pillows . MATTY Hernandez and student nurse-hydrogen treater at bedside. RECOMMENDATION: Nursing to continue with BID/PRN cleaning and application of Z Guard cream to lower buttocks/thighs MASD and Rt. abd fold intertrigo, Daily/PRN dressing change to sacral, buttocks and Rt thigh wounds per MD order, Dietary consult, frequent turning and repositioning schedule as condition permits, redistribute pressure points with pillows, air mattress (ordered), frequent fabiana care/check, keep clean and dry, elevate heels on pillows, continue monitoring by wound care while patient is hospitalized. Addendum: 03/08/20 at 1628 by Lachelle Martinez RN Amended: Links added.
[2020-03-08] MEDS ORDERED: ALBUMIN 25% 100 ML IV PRN (12:45)
--- NOTE | 2020-03-08 12:47 | NUR ---
AIR MATTRESS: Air mattress ordered at [facility]. YOU 03/08/20 @ 1846 Reference #[id number]. Please call [facility] at if needed to follow up. Addendum: 03/08/20 at 1530 by Lachelle Martinez RN Amended: Links added.
[2020-03-08] MEDS: fentaNYL Drip 2500mCg/250mlNS 250 ML IV SCH (13:50)
[2020-03-08] MEDS ORDERED: PHYTONADIONE(VitK) ORAL Susp 10mg/10ml(1mg/ml) GT ONE (15:15)
[2020-03-08] MEDS: PHENYLEPHRINE INJ 40 MG in SODIUM CHL 0.9% 250 ML IV SCH (17:14)
[2020-03-08] MEDS: NOREPINEPHRINE BITARTRATE 16 MG in SODIUM CHL 0.9% 250 ML IV SCH (17:33)
[2020-03-08] MEDS: VASOPRESSIN 50 UNITS in D5W 5% 247.5 ML IV SCH (17:43)
[2020-03-08 23:38] LABS: INR 2.81 (0.9-1.15); Partial Thromboplastin Time 57.5 sec (23.64-32.05)
[2020-03-09] VITALS (54 sets, daily range): BP systolic 73–128; BP diastolic 42–64
[2020-03-09] MEDS: ALBUTEROL SULF 2.5 MG/0.5ML(0.5%) NEB SOLN NEB SCH ×5 (00:31→23:51)
[2020-03-09] MEDS: ACCU-CHEK COMFORT CURVE STRIP VI SCH ×4 (00:41→17:42)
[2020-03-09] MEDS: InsuLIN REG 1unit/0.01ml Soln (100units/ml) SC SCH ×4 (00:42→17:42)
[2020-03-09] MEDS: MIDAZOLAM DRIP 50 mg/50mL 50 ML IV SCH ×3 (01:06→20:00)
[2020-03-09] MEDS: PHENYLEPHRINE INJ 40 MG in SODIUM CHL 0.9% 250 ML IV SCH ×4 (03:15→22:00)
[2020-03-09] MEDS ORDERED: SODIUM CHL 0.9% 1000 ML BAG XX ONE (07:00)
[2020-03-09 07:11] LABS: Basophils # (auto) 0 10 ^3/uL (0-0.2); Basophils % (auto) 0.2 % (0.0-2.0); Eosinophils # (auto) 0 10 ^3/uL (0-0.8); Eosinophils % (auto) 0.2 % (0.0-7.0); Hematocrit 28.8 % (36.0-46.0); Lymphocytes # (auto) 0.5 10 ^3/uL (0.4-5.4); Mean Corpuscular Hemoglobin 30.9 pg (28.0-32.0); Mean Corpuscular Hgb Conc. 31.2 g/dL (32.0-36.0); Monocytes # (auto) 0.4 10 ^3/uL (0-1.3); Monocytes % (auto) 2.7 % (0.0-12.0); Neutrophils # (auto) 15.2 10 ^3/uL (1.6-8.6); Neutrophils % (auto) 93.9 % (37.0-80.0); Nucleated Red Blood Cells % 0.3 %; Platelet Count (auto) 80 10^3/uL (140-450); Red Blood Cells 2.91 10^6/uL (4.0-5.20); Red Cell Distribution Width 17.2 % (11.8-14.3); White Blood Cell 16.2 10^3/uL (4.4-10.8)
[2020-03-09 07:26] LABS: Calcium 7.4 mg/dL (8.5-10.1)
[2020-03-09] MEDS: POTASSIUM CHL 20MEQ/100ML 100 ML IV SCH ×2 (09:47→10:50)
[2020-03-09] MEDS: PIPERACILLIN-TAZOB 2.25GM 50 ML IV SCH (09:48)
[2020-03-09] MEDS: PANTOPRAZOLE 40 MG/10 ML VIAL INJ IV SCH ×2 (10:10→22:22)
[2020-03-09] MEDS: ASCORBIC ACID 1,000 MG TAB PO SCH (10:10)
[2020-03-09] MEDS: VASOPRESSIN 50 UNITS in D5W 5% 247.5 ML IV SCH ×2 (10:10→22:00)
[2020-03-09] MEDS: NOREPINEPHRINE BITARTRATE 16 MG in SODIUM CHL 0.9% 250 ML IV SCH (11:20)
--- NOTE | 2020-03-09 11:48 | NUR ---
ADMIT TO ICU Report received from Ludmila STARR, care assumed. NAVA BAIG admitted to ICU via gurney on diagnostic cardiac sonographer, intubated and being bagged by Respiratory Therapist. Patient transferred to bed 104, connected to mechanical ventilator by therapist, MONIKA at bedside. Tolerating mechanical ventilation with oxygen saturation 100%. Blood secretions noted in oral cavity and ETT. Patient connected to ICU monitoring, atrial fibrillation 118-140's, [facility], oriented to Margy vega RN, unit, ventilator and sedation of versed. Patient on vasopressor therapy of neosynephrine, levophed, and vasopressin. Physical assessment complete. Patient has multiple wounds. Pt repositioned on side, all extremities off loaded on pillows. Flexiseal and Irving catheter present, and patent. Blood noted in Irving catheter. Alarms in place, bed locked in lowest position. Will continue to monitor.
--- NOTE | 2020-03-09 11:50 | NUR ---
RT Transport Note: Patient transported to ICU 104 with RN and ERT. Patient transported on youth nutritional monitor with alarms set and audible, ambu-bag connected to O2 tank. Placed pt back on ventilator with previous settings. Transport completed without incident.
--- NOTE | 2020-03-09 11:56 | NUR ---
Nutrition Assessment/consult Notes please see attached link for complete assessment Est energy needs ABW 68 [id number] kcal (27-30 kcal/kg ABW) , Est protein needs 81-95 g (1.2-1.4g/kg BW r/t HD wounds) . Will reassess prn. Rec: EN support with Nephro carb steady @ 45ml/ hr per MD approval Addendum: 03/09/20 at [address] Amended: Links added.
--- NOTE | 2020-03-09 12:06 | NUR ---
VENT CHANGES: Notified Dr. Holt of increasing peak inspiratory pressures, orders received for vent changes: PCV, P30, RR 24, PEEP +5, I TIME 0.8, FIO2 30%. ABG to follow in one hour. Pt tolerating changes well, no s/s of distress. Notified RN of changes.
--- NOTE | 2020-03-09 12:07 | NUR ---
DIALYSIS DIALYSIS NURSE AT BEDSIDE.
[2020-03-09] MEDS ORDERED: ALBUMIN 25% 100 ML IV ONE ×2 (13:00)
--- NOTE | 2020-03-09 13:00 | NUR ---
ABG held at this time, pt currently on dialysis. Will continue with order after dialysis is completed.
[2020-03-09] MEDS: ALBUMIN 25% 100 ML IV SCH ×2 (13:10→15:39)
--- NOTE | 2020-03-09 13:10 | NUR ---
HYPOTENSION ADMINISTERING ONE BOTTLE 25% ALBUMIN PER MD ORDER TO KEEP SBP GREATER THAN 90.
--- NOTE | 2020-03-09 13:30 | NUR ---
FAMILY SPOKE WITH PT BROTHER IN LAW REGARDING ADMISSION QUESTIONS. FAMILY UPDATED ON STATUS AND PLAN OF CARE.
[2020-03-09] MEDS: fentaNYL Drip 2500mCg/250mlNS 250 ML IV SCH (13:50)
--- NOTE | 2020-03-09 14:00 | NUR ---
MD VISIT AT BEDSIDE. MD AWARE OF VS AND VASOPRESSOR DRIPS.
[2020-03-09] MEDS ORDERED: VANCOMYCIN 1GM/250ML 250 ML IV ONE (16:00)
--- NOTE | 2020-03-09 16:00 | NUR ---
MRSA SWAB OBTAINED AND SENT TO LAB
--- NOTE | 2020-03-09 16:45 | NUR ---
WOUND CARE WOUND CARE PERFORMED TO LEFT ARM. WOUND CARE PHOTOS OBTAINED.
--- NOTE | 2020-03-09 19:00 | NUR ---
BLEEDING DIALYSIS CATHETER DRESSING REMOVED DUE TO PROLONGED PRESSURE BEING HELD. ONCE DRESSING REMOVED, THE UPPER ACCESS POINT BEGAN BLEEDING. SURGICAL SNOW APPLIED WITH PRESSURE DRESSING. WILL CONTINUE TO MONITOR.
--- NOTE | 2020-03-09 19:20 | NUR ---
REPORT REPORT GIVEN TO MAHI STARR, CARE ENDORSED.
[2020-03-09] MEDS ORDERED: EPOETIN ALFA 10,000 UNIT/1 ML VIAL SC ONE (21:00)
--- NOTE | 2020-03-09 21:31 | NUR ---
SPOKE TO ANNIA (NEPHEW / CAREGIVER) PROVIDED PASSWORD. UPDATED ANNIA ON PATIENTS STATUS AND POC, ALL QUESTIONS AND CONCERNS ADDRESSED.
[2020-03-09] MEDS: MEROPENEM 500MG IVPB 50 ML IV SCH (22:22)
[2020-03-10] VITALS (84 sets, daily range): BP systolic 82–146; BP diastolic 40–78
[2020-03-10] MEDS: ACCU-CHEK COMFORT CURVE STRIP VI SCH ×4 (00:21→18:13)
[2020-03-10] MEDS: PHENYLEPHRINE INJ 40 MG in SODIUM CHL 0.9% 250 ML IV SCH ×6 (01:56→21:00)
[2020-03-10] MEDS: NOREPINEPHRINE BITARTRATE 16 MG in SODIUM CHL 0.9% 250 ML IV SCH (04:23)
[2020-03-10] MEDS: MIDAZOLAM DRIP 50 mg/50mL 50 ML IV SCH ×3 (04:24→21:00)
--- NOTE | 2020-03-10 04:55 | NUR ---
CARES BED BATH, PARTIAL BED LINEN CHANGE. APPLIED OPTIFOAMS TO SACRUM. PATIENT TOLERATED CARES WELL. VS ARE STABLE.
[2020-03-10] MEDS: InsuLIN REG 1unit/0.01ml Soln (100units/ml) SC SCH ×4 (06:00→18:00)
[2020-03-10] MEDS: ALBUTEROL SULF 2.5 MG/0.5ML(0.5%) NEB SOLN NEB SCH ×4 (06:35→23:55)
--- NOTE | 2020-03-10 07:40 | NUR ---
INITIAL CONTACT REPORT RECEIVED FROM CAMMY STARR, CARE ASSUMED. PT OBSERVED RESTING IN BED, NO DISTRESS NOTED. PT INTUBATED ON MECHANICAL VENTILATOR, TOLERATING WELL. OXYGEN SATURATION 100%. PT UNDER SEDATION OF VERSED. SEE IV SPREADSHEET. AFEBRILE. PUPILS FIXED. PHYSICAL ASSESSMENT COMPLETE. RIGHT FEMORAL CENTRAL LINE NOTED. GOLDSTEIN CATHETER PRESENT, PATENT, AND SECURED BELOW BLADDER. SEE SKIN/WOUND ASSESSMENT. LEFT UPPER ARM DIALYSIS FISTULA, BRUIT AND THRILL PRESENT. BED LOCKED IN LOWEST POSITION, ALARMS IN PLACE. PT ON FREQUENT TURNING SCHEDULE. WILL CONTINUE TO MONITOR.
--- NOTE | 2020-03-10 08:20 | NUR ---
CARES COMPLETE LINEN CHANGE PERFORMED. PT HAD MODERATE AMOUNT OF STOOL LEAK AROUND FLEXISEAL SITE. MOOKIE CARE AND WOUND CARE PERFORMED. PT THEN REPOSITIONED IN BED ON SIDE. VS REMAINING STABLE AT THIS TIME. BED LOCKED IN LOWEST POSITION, ALARMS IN PLACE.
[2020-03-10 08:36] LABS: Hemoglobin 7.6 g/dL (12.2-16.2); White Blood Cell 20.8 10^3/uL (4.4-10.8)
[2020-03-10 08:39] LABS: Mean Corpuscular Hemoglobin 31.1 pg (28.0-32.0); Mean Corpuscular Hgb Conc. 31.8 g/dL (32.0-36.0); Mean Corpuscular Volume 97.8 fL (80.0-100.0); Platelet Count (auto) 67 10^3/uL (140-450); Red Blood Cells 2.45 10^6/uL (4.0-5.20); Red Cell Distribution Width 17.6 % (11.8-14.3)
[2020-03-10 08:47] LABS: Band Neutrophils % (manual) 0; Basophils % (manual) 0 (0.0-2.0); Blast Cells 0; Eosinophils % (manual) 0 (0-7); Metamyelocytes % 0; Myelocytes % 0; Promyelocytes % 0; Reactive Lymphocytes 0
[2020-03-10 08:52] LABS: BUN/Creatinine Ratio 8.1; Calcium 7.2 mg/dL (8.5-10.1); Potassium 3.1 mmol/L (3.5-5.1)
[2020-03-10 09:38] LABS: Lymphocytes % (manual) 1 (10.0-50.0); Monocytes % (manual) 2 (0-12)
--- NOTE | 2020-03-10 09:46 | NUR ---
PAGED PAGED REGARDING AM LAB RESULTS. AWAITING CALL BACK.
--- NOTE | 2020-03-10 09:54 | NUR ---
MD VISIT ROUNDING AT BEDSIDE. AWARE OF AM LAB. NEW ORDERS RECEIVED FOR POTASSIUM REPLACEMENT AND 1 UNIT PRBC.
[2020-03-10] MEDS ORDERED: POTASSIUM EFFERVESENT TAB 25 MEQ PO ONE (10:00)
[2020-03-10] MEDS: ASCORBIC ACID 1,000 MG TAB PO SCH (10:08)
[2020-03-10] MEDS: MEROPENEM 500MG IVPB 50 ML IV SCH ×2 (10:08→21:42)
[2020-03-10] MEDS: PANTOPRAZOLE 40 MG/10 ML VIAL INJ IV SCH ×2 (10:08→21:42)
[2020-03-10] MEDS: VASOPRESSIN 50 UNITS in D5W 5% 247.5 ML IV SCH ×2 (10:09→23:00)
--- NOTE | 2020-03-10 12:40 | NUR ---
BLOOD PRODUCT ONE UNIT OF PRBC ADMINISTRATION BEGUN. VS STABLE AT THIS TIME. NO S/S OF REACTIONS. WILL CONTINUE TO MONITOR.
--- NOTE | 2020-03-10 13:00 | NUR ---
WOUND CARE NOTE: BEDSIDE NURSE ADVISED WOUND CARE TEAM THAT PATIENT HAS AN OPEN WOUND TO LEFT FOOT FROM PREVIOUS SURGERY, NOT PHOTOGRAPHED AT TIME OF ADMIT. NEW WOUND PHOTO TAKEN BY BEDSIDE NURSE FOR REFERENCE. SHE IS S/P OPEN AMPUTATION OF # 3 TOE, LEFT FOOT. WOUND MEASURES 1 X 0.3 CM. WOUND IS FULL THICKNESS, DUSKY RED WOUND BED, PERIWOUND IS PINK, CALLOUSED. APPLIED THERAHONEY, BANDAID TO WOUND. RECOMMEND: EOD/PRN DRESSING CHANGE TO OPEN WOUND LEFT FOOT, # 3 TOE AMPUTATION SITE, CONTINUATION WITH ALL OTHER WOUND CARE ORDERS PREVIOUSLY PRESCRIBED BY MD. WOUND CARE TEAM WILL CONTINUE TO MONITOR. Addendum: 03/10/20 at 1656 by Leta Mckinney RN Amended: Links added.
[2020-03-10] MEDS ORDERED: PHENYLEPHRINE HCL 10 MG/ML VL ONE (13:11)
[2020-03-10] MEDS ORDERED: PHENYLEPHRINE IV 250 ML IV ONE (13:11)
--- NOTE | 2020-03-10 13:22 | NUR ---
WOUND CARE PHOTO TAKEN OF LEFT FOOT 3RD DIGIT AMPUTATION SITE. WOUND CARE NURSE AT BEDSIDE TO ASSESS WOUND. DRESSING APPLIED.
[2020-03-10] MEDS: fentaNYL Drip 2500mCg/250mlNS 250 ML IV SCH (13:50)
--- NOTE | 2020-03-10 16:33 | NUR ---
MD VISIT DR.MADKOUR BENNETT AT BEDSIDE. AWARE OF LABS. DIALYSIS ORDERED FOR TOMORROW.
--- NOTE | 2020-03-10 17:50 | NUR ---
BOWEL MOVEMENT PT HAD LARGE BM, MODERATE AMOUNT OF STOOL LEAKING AROUND FLEXI-SEAL. PLACEMENT CHECKED. SACRAL OPTIFOAM REPLACED. GOWN CHANGED, PATIENT REPOSITIONED ON SIDE IN BED. VS STABLE, PT TOLERATED ACTIVITY WELL. Signed: 03/10/20 at 1817 by KYM RAMIRES <Co-Signature Required> Co-Signed: 03/10/20 at 1817 by Margy Toledo RN
--- NOTE | 2020-03-10 18:10 | NUR ---
CENTRAL LINE DRESSING CHANGE DRESSING CHANGED WITH STERILE TECHNIQUE. Signed: 03/10/20 at 1818 by KYM RAMIRES <Co-Signature Required> Co-Signed: 03/10/20 at 1818 by Margy Toledo RN
--- NOTE | 2020-03-10 18:30 | NUR ---
MD TURK SPOKE WITH REGARDING PATIENTS LUNGS SOUNDS CONTINUING TO BE COARSE, REQUESTING DIURETIC. DOES NOT WANT LASIX GIVEN AT THIS TIME. HE STATED HE WILL TRY TO REMOVE MORE FLUID DURING DIALYSIS TOMORROW.
--- NOTE | 2020-03-10 20:00 | NUR ---
Opening Shift Note: Patient is intubated/sedated. ET size 8.0/24 @ lip. Settings: PC rate 24; pressure 30; FiO2 30%; I-time 0.8; PEEP 5. Neuro: legally blind per report; bilateral pupils are 5 mm/fixed; flaccid extremities; absent cough/gag. Cardio: Afib 110s-120s; SBP 100s-110s; pulses are irregular and weak; +4 pitting edema BLE; +1 pitting edema bilateral arms/hands. Resp: FABIANA anterior coarse; RUL clear; bilateral bases diminished; scant blood suctioned from mouth; small yellow/creamy thick secretions from ET tube. GI: right NGT clamped. Flexiseal in place but leaking liquid light brown stool; attempted to adjust with no success. Irving inserted on 03/07/20 for strict I/O; [facility] dialysis patient MWF; access is a LUE fistula; last dialysis was 03/09/20 with 1L removed per report. Next dialysis is scheduled for tomorrow with an increase in fluid removal per physician. Skin: multiple issues, see charting. IV right femoral TLC inserted on 03/07/20 running Versed @ 6, Vega double conc. @ 180 max, Vasopressin @ 0.07 max, Levo @ 16. Pending CXR and laboratory studies in AM. Will continue to round/reposition/perform oral care prn.
[2020-03-11] VITALS (95 sets, daily range): BP systolic 82–126; BP diastolic 39–69
[2020-03-11] MEDS: ACCU-CHEK COMFORT CURVE STRIP VI SCH ×4 (00:12→17:33)
[2020-03-11] MEDS: MIDAZOLAM DRIP 50 mg/50mL 50 ML IV SCH ×4 (01:00→22:38)
[2020-03-11] MEDS: PHENYLEPHRINE INJ 40 MG in SODIUM CHL 0.9% 250 ML IV SCH ×3 (01:08→23:17)
--- NOTE | 2020-03-11 04:00 | NUR ---
Patient bathe/linen change Patient given complete CHG bath. Skin integrity assessed for any changes; all dressings changed per orders; zguard applied to breast/groin/abdominal folds. Linens and gown changed. Patient repositioned for comfort.
[2020-03-11 04:11] LABS: Hematocrit 27.5 % (36.0-46.0); Hemoglobin 9.1 g/dL (12.2-16.2); Mean Corpuscular Hemoglobin 31.6 pg (28.0-32.0); Mean Corpuscular Volume 95.5 fL (80.0-100.0); Platelet Count (auto) 80 10^3/uL (140-450); Red Blood Cells 2.88 10^6/uL (4.0-5.20); Red Cell Distribution Width 16.9 % (11.8-14.3); White Blood Cell 24.1 10^3/uL (4.4-10.8)
[2020-03-11 04:15] LABS: Basophils % (manual) 0 (0.0-2.0); Blast Cells 0; Eosinophils % (manual) 0 (0-7); Lymphocytes % (manual) 0 (10.0-50.0); Metamyelocytes % 0; Myelocytes % 0; Promyelocytes % 0; Reactive Lymphocytes 0
[2020-03-11 04:23] LABS: Potassium 3.2 mmol/L (3.5-5.1)
[2020-03-11 04:30] LABS: Albumin 1.9 g/dL (3.4-5.0); BUN/Creatinine Ratio 9.5; Bilirubin, Total 7.8 mg/dL (0.2-1.0); Calcium 7.1 mg/dL (8.5-10.1); Total Protein 5.2 g/dL (6.4-8.2)
[2020-03-11] MEDS: InsuLIN REG 1unit/0.01ml Soln (100units/ml) SC SCH ×4 (05:13→17:33)
[2020-03-11 05:22] LABS: Band Neutrophils % (manual) 3; Monocytes % (manual) 1 (0-12)
--- NOTE | 2020-03-11 06:18 | NUR ---
Page sent to road contractor hospitalist for potassium replacement; current K is 3.2.
[2020-03-11] MEDS ORDERED: POTASSIUM CHL 20MEQ/100ML 100 ML IV ONE ×2 (06:27→06:30)
[2020-03-11] MEDS: ALBUTEROL SULF 2.5 MG/0.5ML(0.5%) NEB SOLN NEB SCH ×3 (06:34→22:27)
[2020-03-11] MEDS ORDERED: SODIUM CHL 0.9% 1000 ML BAG XX ONE (07:00)
[2020-03-11] MEDS ORDERED: ALBUMIN 25% 100 ML IV STA (10:12)
[2020-03-11] MEDS: MEROPENEM 500MG IVPB 50 ML IV SCH ×2 (10:28→22:20)
[2020-03-11] MEDS: PANTOPRAZOLE 40 MG/10 ML VIAL INJ IV SCH (10:28)
[2020-03-11] MEDS: ASCORBIC ACID 1,000 MG TAB PO SCH (10:28)
--- NOTE | 2020-03-11 11:34 | NUR ---
Nutrition Followup Notes Wt: 98.6 kg (+ 4 edema) Pt`s intubated sedated with no family by bedside. pt is currently NPO with no new diet orders. Pt to have HD today Est energy needs ABW 68 [id number] kcal (27-30 kcal/kg ABW) , Est protein needs 81-95 g (1.2-1.4g/kg BW r/t HD wounds) . Will reassess prn. LABS: BUN 28 H, CREAT 2.95 H CA 7.1 L, ALB 1.9 L GI: Pt had 2 BM yesterday per RN doc BS: 8 high risk. Refer to wound assessment report for full details. PES: Altered nutrition related lab r/t current chronic medical condition aeb elev RFT severe hypoalb hypocalcemia Impaired swallowing r.t current medical condition aeb pt`s intubated sedated with order of NPO Comments Will continue to closely monitor pertinent labs, NPO status, skin status and weight trends. Will f/u in 2-3 days Rec: 1) consider EN support with Nephro carb steady @ 45 ml/hr per MD approval. 2) advance diet as medically feasible. 3) consider nephrovite bid. 4) consider prostat 1 packet bid. 5) continue current plan of care
--- NOTE | 2020-03-11 11:48 | NUR ---
SKIN TEAR NOTED AT THE FISTULA SITE. TAX FORM PREPARER MENTIONED THAT IT HAPPENED WHEN SHE WAS CHANGING THE DRESSING AFTER DIALYSIS.
[2020-03-11] MEDS ORDERED: DIGOXIN (250MCG/ML) 2 ML AMPULE ONE (12:05)
[2020-03-11] MEDS: VASOPRESSIN 50 UNITS in D5W 5% 247.5 ML IV SCH (12:09)
--- NOTE | 2020-03-11 12:10 | NUR ---
MD at bedside. MD at bedside for evaluation and treatment for acute episode. Further orders received and carried out.
[2020-03-11] MEDS ORDERED: DIGOXIN (250MCG/ML) 2 ML AMPULE IV ONE (12:15)
--- NOTE | 2020-03-11 12:15 | NUR ---
HR- 154. DIGOXIN GIVEN PER MD ORDER.
--- NOTE | 2020-03-11 13:30 | NUR ---
HR- AFIB AT RATE 120
[2020-03-11] MEDS: fentaNYL Drip 2500mCg/250mlNS 250 ML IV SCH (13:50)
[2020-03-11] MEDS ORDERED: VANCOMYCIN 1GM/250ML 250 ML IV ONE (15:00)
[2020-03-11] MEDS ORDERED: Nepro With Carb Steady 1 Liter Bottle GT SCH (15:45)
--- NOTE | 2020-03-11 15:47 | NUR ---
assessment Patient is a 70 year old female in ICU on a vent. Per patients brother in law Keaton prior to admission patient lived home with him and him and family and functioned with assistance. Patients PCP is Dr Avalos. Patient has a wheelchair, hospital bed and otilio lift and 02 @4L for home use. Patient is on service with [facility] MWF at 145pm. Per Keaton patient has a caregiver Herminio her nephew. Patient is on service with [facility]. I informed Keaton i will continue to monitor patient and her post discharge needs to be determined after extubation and prior to discharge. Keaton verbalized understanding. Addendum: 03/11/20 at 1551 by Destiny SINGLETON Amended: Links added.
--- NOTE | 2020-03-11 19:20 | NUR ---
OPEN NOTES REPORT RECEIVED FROM MATTY SANCHES. SEDATED WITH IV VERSED, HYPOACTIVE COUGH AND GAG NOTED. PUPILS BOTH 5MM FIXED - WILL TITRATE SEDATION INTUBATED AND VENTILATED ON PC MODE, FIO2 30%. SUCTIONED BLOOD STAINED ETT SECRETIONS AND BLOODY ORAL SECRETIONS. ON AFIB HR 100-115/MIN, BP SUPPORTED BY 3 PRESSORS IV LEVOPHED,JOSE AND VASOPRESSIN - SEE SPREADSHEET FOR TITRATION LT NARES NGT IN PLACED -CLAMPED. PLACEMENT CHECKED. GOLDSTEIN CATHETER IN PLACED WITH SOME LAKHANI COLORED OUTPUT SMALL AMOUNT. HD WAS DONE TODAY. SWOLLEN UPPER AND LOWER LIMBS WITH MULTIPLE SKIN ISSUES NOTED -REFER WOUND CHART. REPOSITIONED,ORAL CARE DONE WILL CONTINUE TO MONITOR
[2020-03-11] MEDS: NOREPINEPHRINE BITARTRATE 16 MG in SODIUM CHL 0.9% 250 ML IV SCH (19:47)
[2020-03-11] MEDS ORDERED: EPOETIN ALFA 10,000 UNIT/1 ML VIAL SC ONE (21:00)
--- NOTE | 2020-03-11 22:00 | NUR ---
NGT ASPIRATED NGT ASPIRATED 60ML BROWNISH OUTPUT CONNECTED TO LIS TUBE FEEDING NOT STARTED
[2020-03-12] VITALS (105 sets, daily range): BP systolic 70–133; BP diastolic 19–79
[2020-03-12] MEDS: ACCU-CHEK COMFORT CURVE STRIP VI SCH ×5 (00:18→23:49)
[2020-03-12] MEDS: ALBUTEROL SULF 2.5 MG/0.5ML(0.5%) NEB SOLN NEB SCH ×4 (00:31→19:27)
--- NOTE | 2020-03-12 01:30 | NUR ---
HYGIENE SPONGE BATH DONE. LINENS CHANGED. STOOL COMING OUT EVEN WITH FLEXI SEAL RECTAL TUBE PERIANAL AREA CLEANED. OPTIFOAM AT SACRAL AREA CHANGED - BLEEDING REPOSITIONED
[2020-03-12 04:39] LABS: Basophils # (auto) 0 10 ^3/uL (0-0.2); Eosinophils # (auto) 0.1 10 ^3/uL (0-0.8); Hemoglobin 8.1 g/dL (12.2-16.2); Monocytes # (auto) 0.7 10 ^3/uL (0-1.3); Platelet Count (auto) 35 10^3/uL (140-450)
[2020-03-12 04:41] LABS: Basophils % (auto) 0.1 % (0.0-2.0); Eosinophils % (auto) 0.3 % (0.0-7.0); Hematocrit 24.7 % (36.0-46.0); Lymphocytes # (auto) 0.6 10 ^3/uL (0.4-5.4); Lymphocytes % (auto) 2.6 % (10.0-50.0); Mean Corpuscular Hgb Conc. 32.8 g/dL (32.0-36.0); Mean Corpuscular Volume 94.6 fL (80.0-100.0); Monocytes % (auto) 3.1 % (0.0-12.0); Neutrophils # (auto) 21.7 10 ^3/uL (1.6-8.6); Neutrophils % (auto) 93.9 % (37.0-80.0); Red Blood Cells 2.62 10^6/uL (4.0-5.20); Red Cell Distribution Width 17.1 % (11.8-14.3); White Blood Cell 23.1 10^3/uL (4.4-10.8)
[2020-03-12] MEDS: PHENYLEPHRINE INJ 40 MG in SODIUM CHL 0.9% 250 ML IV SCH ×5 (04:55→23:05)
[2020-03-12 04:59] LABS: BUN/Creatinine Ratio 8.9; Calcium 7.1 mg/dL (8.5-10.1)
[2020-03-12 05:05] LABS: Potassium 2.8 mmol/L (3.5-5.1)
--- NOTE | 2020-03-12 05:10 | NUR ---
HOSPITALIST CALLED BACK INFORMED HOSPITALIST JESIKA OF CRITICAL POTASSIUM LEVEL TELEPHONE ORDER RECEIVED AND VERIFIED
[2020-03-12] MEDS ORDERED: POTASSIUM CHL 20MEQ/100ML 100 ML IV ONE (05:15)
--- NOTE | 2020-03-12 05:50 | NUR ---
ELIMINATION STOOL LEAKING OUT FROM RECTAL TUBE CLEANED PATIENT. CHUX CHANGED
[2020-03-12] MEDS: InsuLIN REG 1unit/0.01ml Soln (100units/ml) SC SCH ×5 (06:00→23:49)
--- NOTE | 2020-03-12 06:00 | NUR ---
LEFT AND RIGHT UPPER LIMB WOUND DRESSING CHANGED
--- NOTE | 2020-03-12 07:15 | NUR ---
REPORT REPORT GIVEN TO MATTY WOODRUFF
[2020-03-12] MEDS ORDERED: POTASSIUM CHLORIDE 40 MEQ, LIDOCAINE 1% (LOCAL ANESTH.) 4 ML in SODIUM CHL 0.9% 100 ML IV ONE (09:15)
[2020-03-12] MEDS: PANTOPRAZOLE 40 MG/10 ML VIAL INJ IV SCH (09:20)
[2020-03-12] MEDS: AMIODARONE HCL 200 MG TAB GT SCH (09:20)
[2020-03-12] MEDS: MEROPENEM 500MG IVPB 50 ML IV SCH ×2 (09:20→21:58)
[2020-03-12] MEDS: NOREPINEPHRINE BITARTRATE 16 MG in SODIUM CHL 0.9% 250 ML IV SCH ×2 (10:34→23:52)
[2020-03-12] MEDS: MIDAZOLAM DRIP 50 mg/50mL 50 ML IV SCH (10:35)
--- NOTE | 2020-03-12 12:06 | NUR ---
Complete bath provided. Linens and gown changed. Dressing change complete to patient's wounds per protocol.
[2020-03-12] MEDS: VASOPRESSIN 50 UNITS in D5W 5% 247.5 ML IV SCH (12:53)
--- NOTE | 2020-03-12 15:00 | NUR ---
Dr. Holt at bedside.
--- NOTE | 2020-03-12 15:02 | NUR ---
Nephro tube feeding infusing at 30ml/hr, goal is 40.
--- NOTE | 2020-03-12 16:00 | NUR ---
INITIAL CONTACT ASSUMED CARE OF PATIENT. PT RESTING IN BED ON MECHANICAL VENTILATION. TOLERATING WELL. OXYGEN SATURATION 100%. LUNG SOUNDS COARSE. PHYSICAL ASSESSMENT PERFORMED. SKIN ASSESSMENT COMPLETE. PT WEEPING SEROUS FLUID FROM MULTIPLE SITES ON BODY. SCD'S ON BILATERAL LOWER EXTREMITIES. ALL EXTREMITIES OFF LOADED ON PILLOWS. ALARMS IN PLACE. PT ON VERSED, PHENYLEPHRINE, VASOPRESSIN, AND LEVOPHED DRIP. WILL CONTINUE TO MONITOR.
--- NOTE | 2020-03-12 16:30 | NUR ---
LINEN/WOUND CARE PARTIAL LINEN AND GOWN CHANGE COMPLETE. PT SATURATED WITH SEROUS FLUID. WOUND CARE PERFORMED TO SCARUM AND RIGHT ARM. NEW MOOKIE PADS PLACED. PT REPOSITIONED ON SIDE. ORAL CARE COMPLETE. VS REMAINING STABLE. HEART RATE INCREASED TO 130-150'S WITH ACTIVITY. NO DISTRESS NOTED. WILL CONTINUE TO MONITOR.
--- NOTE | 2020-03-12 16:46 | NUR ---
IV RIGHT FEMORAL DRESSING SATURATED WITH SEROUS FLUID. STERILE DRESSING CHANGE PERFORMED.
--- NOTE | 2020-03-12 18:29 | NUR ---
PAGED PAGED REGARDING POTASSIUM LEVEL, AWAITING CALL BACK.
--- NOTE | 2020-03-12 19:45 | NUR ---
OPEN NOTES RECEIVED SEDATED WITH IV VERSED, HYPOACTIVE COUGH AND GAG NOTED. PUPILS BOTH 5MM FIXED. PATIENT IS LEGALLY BLIND PER REPORT. INTUBATED AND VENTILATED ON PC MODE, FIO2 30%. SUCTIONED BLOOD STAINED ETT SECRETIONS AND BLOODY ORAL SECRETIONS. ON AFIB HR 110-130/MIN, BP SUPPORTED BY 3 PRESSORS IV LEVOPHED,JOSE AND VASOPRESSIN - SEE SPREADSHEET FOR TITRATION LT NARES NGT IN PLACED -PLACEMENT CHECKED, ASPIRATED 5MLS RESIDUAL.ON TUBE FEEDING OF NEPHRO AT 30ML/HR. GOLDSTEIN CATHETER IN PLACED NO OUTPUT NOTED. DIALYSIS PATIENT M-W-F. SWOLLEN UPPER AND LOWER LIMBS - WEEPING WITH MULTIPLE SKIN ISSUES NOTED -REFER WOUND CHART. REPOSITIONED,ORAL CARE DONE WILL CONTINUE TO MONITOR
[2020-03-13] VITALS (101 sets, daily range): BP systolic 77–123; BP diastolic 37–61
--- NOTE | 2020-03-13 | NUR ---
TUBE FEEDING RESIDUAL CHECKED = 50MLS KEPT AT 30ML/HR WILL RECHECK LATER
[2020-03-13] MEDS: ALBUTEROL SULF 2.5 MG/0.5ML(0.5%) NEB SOLN NEB SCH ×4 (00:18→18:30)
--- NOTE | 2020-03-13 01:00 | NUR ---
HYGIENE/ELIMINATION FLEXI SEAL STILL LEAKING - CHECKED, IN PLACED. CLEANED PERIANAL AREA, OPEN WOUNDS ON THE SACRAL AND UPPER THIGH AREA CLEANED, APPLIED Z GUARD AND COVERED WITH OPTIFOAM. PATIENT'S BODY CLEANED WITH CHG WIPES. LINENS CHANGED. RIGHT ARM SKIN TEAR DRESSING SOAKED - CHANGED. ALL LIMBS ELEVATED ON PILLOW WITH CHUX UNDERNEATH REPOSITIONED.
[2020-03-13] MEDS: MIDAZOLAM DRIP 50 mg/50mL 50 ML IV SCH (03:00)
[2020-03-13] MEDS: PHENYLEPHRINE INJ 40 MG in SODIUM CHL 0.9% 250 ML IV SCH ×2 (03:16→23:35)
[2020-03-13 04:58] LABS: Eosinophils # (auto) 0.1 10 ^3/uL (0-0.8); Lymphocytes # (auto) 0.6 10 ^3/uL (0.4-5.4); Lymphocytes % (auto) 2.3 % (10.0-50.0); Monocytes # (auto) 0.8 10 ^3/uL (0-1.3); Neutrophils # (auto) 23.1 10 ^3/uL (1.6-8.6); White Blood Cell 24.6 10^3/uL (4.4-10.8)
--- NOTE | 2020-03-13 05:00 | NUR ---
TUBE FEEDING HELD ASPIRATED 60MLS OF RESIDUAL HELD TUBE FEEDINGS
[2020-03-13 05:02] LABS: Basophils # (auto) 0 10 ^3/uL (0-0.2); Basophils % (auto) 0.1 % (0.0-2.0); Eosinophils % (auto) 0.5 % (0.0-7.0); Hematocrit 25.9 % (36.0-46.0); Hemoglobin 8.4 g/dL (12.2-16.2); Mean Corpuscular Hemoglobin 31.1 pg (28.0-32.0); Mean Corpuscular Hgb Conc. 32.5 g/dL (32.0-36.0); Mean Corpuscular Volume 95.7 fL (80.0-100.0); Monocytes % (auto) 3.1 % (0.0-12.0); Platelet Count (auto) 38 10^3/uL (140-450); Red Blood Cells 2.71 10^6/uL (4.0-5.20); Red Cell Distribution Width 17.2 % (11.8-14.3)
[2020-03-13 05:05] LABS: BUN/Creatinine Ratio 9.9; Calcium 7.1 mg/dL (8.5-10.1)
[2020-03-13 05:10] LABS: Potassium 2.9 mmol/L (3.5-5.1)
--- NOTE | 2020-03-13 05:26 | NUR ---
ROSALEE KIM NEPHRO FOR CRITICAL POTASSIUM RESULT
--- NOTE | 2020-03-13 05:32 | NUR ---
NEPHRO CALLED BACK TALKED TO DR. PHOENIX OVER THE PHONE. INFORMED OF CRITICAL POTASSIUM LEVEL 2.9 MMOL TELEPHONE ORDER RECEIVED AND VERIFIED
[2020-03-13] MEDS: InsuLIN REG 1unit/0.01ml Soln (100units/ml) SC SCH ×4 (05:43→23:34)
[2020-03-13] MEDS: ACCU-CHEK COMFORT CURVE STRIP VI SCH ×4 (05:43→23:35)
[2020-03-13] MEDS: POTASSIUM CHL 20MEQ/100ML 100 ML IV SCH ×2 (05:49→07:57)
--- NOTE | 2020-03-13 08:00 | NUR ---
TUBE FEEDINGS HELD PATIENT NOTED TO HAVE 120ML OF GASTRIC RESIDUAL. FEEDINGS REMAIN ON HOLD. ASPIRATION PRECAUTIONS IN PLACE.
--- NOTE | 2020-03-13 11:00 | NUR ---
DR. MALDONADO AT BEDSIDE. SEE MD NOTES.
--- NOTE | 2020-03-13 11:03 | NUR ---
Nutrition Followup Notes Wt: 99.2 kg (+ 4 edema) Pt`s intubated sedated with no family by bedside. Pt with Nepro CS ordered at 40 ml/hr. Currently running at 30 ml/hr with 300 ml given so far. Per RN note pt with 60ml residuals aspirated, TF being held at this time d/t this. Est energy needs ABW 68 [id number] kcal (27-30 kcal/kg ABW) , Est protein needs 81-95 g (1.2-1.4g/kg BW r/t HD wounds) . Will reassess prn. LABS: K 2.9L, BUN 24H, Alb 1.9L, Ca 7.1L, Creat 2.42H, GLUC 112H GI: Pt had 1 BM 8/2 and 400 ml gastric drainage per RN doc BS: 8 high risk. Refer to wound assessment report for full details. PES: Altered nutrition related lab r/t current chronic medical condition aeb elev RFT severe hypoalb hypocalcemia Impaired swallowing r.t current medical condition aeb pt`s intubated sedated with order of NPO Comments Will continue to closely monitor pertinent labs, NPO status, skin status and weight trends. Will f/u in 2-3 days Rec: 1) consider EN support with Nephro carb steady @ 45 ml/hr per MD approval. 2) advance diet as medically feasible. 3) consider nephrovite bid. 4) consider prostat 1 packet bid. 5) continue current plan of care
[2020-03-13] MEDS: MEROPENEM 500MG IVPB 50 ML IV SCH ×2 (11:05→20:23)
[2020-03-13] MEDS: AMIODARONE HCL 200 MG TAB GT SCH (11:05)
[2020-03-13] MEDS: PANTOPRAZOLE 40 MG/10 ML VIAL INJ IV SCH (11:05)
[2020-03-13] MEDS: VASOPRESSIN 50 UNITS in D5W 5% 247.5 ML IV SCH (11:05)
--- NOTE | 2020-03-13 12:00 | NUR ---
FORK TRUCK OPERATOR AT BEDSIDE. SEE MD NOTES.
--- NOTE | 2020-03-13 16:45 | NUR ---
LINEN CHANGE COMPLETE BED CHANGE DONE. PATIENT WEEPS COPIOUS AMOUNT OF SEROUS FLUIDS FROM BILATERAL UPPER ARMS, SACRUM, SKIN FOLDS. BED CHANGE DONE. WOUND DRESSINGS COMPLETED ORDERED. BP NOTED TO TREND DOWN DURING LINEN CHANGE, SEE IV SPREADSHEET.
[2020-03-13] MEDS: NOREPINEPHRINE BITARTRATE 16 MG in SODIUM CHL 0.9% 250 ML IV SCH (17:47)
--- NOTE | 2020-03-13 18:00 | NUR ---
TUBE FEEDINGS HELD PATIENT NOTED TO HAVE 200ML OF GASTRIC RESIDUAL. FEEDINGS REMAIN ON HOLD. ASPIRATION PRECAUTIONS IN PLACE.
--- NOTE | 2020-03-13 19:30 | NUR ---
Opening Shift Note: Patient is intubated/sedated. ET size 8.0/23 @ lip. Settings: PC rate 24; pressure 30; FiO2 30%; I-time 0.8; PEEP 5. Neuro: legally blind per report; bilateral pupils are 5 mm/fixed; flaccid extremities; absent cough/gag. Cardio: Afib 100s-110s; SBP 100s-110s; pulses are irregular and weak; +4 pitting edema BLE; +3 pitting edema bilateral arms/hands. Resp: BUL clear; bilateral bases diminished; scant blood suctioned from mouth; small yellow/creamy thick secretions from ET tube. GI: left NGT clamped; more than 60 ml of tube feed residual present; feedings still held. Flexiseal in place but leaking liquid light brown stool; attempted to adjust with no success. Irving inserted on 03/07/20 for strict I/O; [facility] dialysis patient MWF; access is a LUE fistula; last dialysis was 03/11/20 with 1L removed per report. Next dialysis possibly tomorrow per report but no order in system. Skin: multiple issues, see charting. IV right femoral TLC inserted on 03/07/20 running Versed @ 2, Vega double conc. @ 170, Vasopressin @ 0.02, Levo @ 10. Pending CXR and laboratory studies in AM. Will continue to round/reposition/perform oral care prn.
--- NOTE | 2020-03-13 21:00 | NUR ---
Sedation Vacation: Versed turned off to assess neurological function.
[2020-03-14] VITALS (108 sets, daily range): BP systolic 84–160; BP diastolic 36–57
[2020-03-14] MEDS: ALBUTEROL SULF 2.5 MG/0.5ML(0.5%) NEB SOLN NEB SCH ×4 (00:25→18:13)
[2020-03-14] MEDS ORDERED: PHENYLEPHRINE IV 250 ML IV ONE ×2 (02:21→06:28)
[2020-03-14] MEDS ORDERED: PHENYLEPHRINE HCL 10 MG/ML VL ONE ×2 (02:21→06:22)
[2020-03-14] MEDS: PHENYLEPHRINE INJ 40 MG in SODIUM CHL 0.9% 250 ML IV SCH ×3 (02:30→10:26)
--- NOTE | 2020-03-14 02:30 | NUR ---
Patient bathe/linen change Patient given complete CHG bath. Skin integrity assessed for any changes. All dressings changed per orders. Linens and gown changed. Patient repositioned for comfort.
[2020-03-14] MEDS: ACCU-CHEK COMFORT CURVE STRIP VI SCH ×3 (05:13→17:53)
[2020-03-14] MEDS: InsuLIN REG 1unit/0.01ml Soln (100units/ml) SC SCH ×3 (05:13→17:53)
--- NOTE | 2020-03-14 05:17 | NUR ---
Neuro check update: Neurological checks remain the same. Occasional eye opening that is nonpurposeful; still in synchrony with the vent; flaccid extremities; absent cough/gag. Will continue to keep Versed off at this time.
[2020-03-14 05:24] LABS: Basophils # (auto) 0.1 10 ^3/uL (0-0.2); Basophils % (auto) 0.4 % (0.0-2.0); Eosinophils # (auto) 0.2 10 ^3/uL (0-0.8); Eosinophils % (auto) 0.8 % (0.0-7.0); Hematocrit 26.3 % (36.0-46.0); Hemoglobin 8.6 g/dL (12.2-16.2); Lymphocytes # (auto) 0.8 10 ^3/uL (0.4-5.4); Lymphocytes % (auto) 3.5 % (10.0-50.0); Mean Corpuscular Hemoglobin 31.2 pg (28.0-32.0); Mean Corpuscular Hgb Conc. 32.5 g/dL (32.0-36.0); Monocytes # (auto) 0.7 10 ^3/uL (0-1.3); Monocytes % (auto) 3.2 % (0.0-12.0); Neutrophils # (auto) 20.3 10 ^3/uL (1.6-8.6); Neutrophils % (auto) 92.1 % (37.0-80.0); Nucleated Red Blood Cells % 0.1 %; Platelet Count (auto) 79 10^3/uL (140-450); Red Blood Cells 2.74 10^6/uL (4.0-5.20); Red Cell Distribution Width 17.8 % (11.8-14.3)
--- NOTE | 2020-03-14 05:30 | NUR ---
Right femoral TLC dressing changed related to weeping from abdominal skin tears. Covered with pads to prevent saturation.
[2020-03-14 06:02] LABS: BUN/Creatinine Ratio 10.7; Calcium 7.3 mg/dL (8.5-10.1)
[2020-03-14 06:24] LABS: Potassium 2.7 mmol/L (3.5-5.1)
--- NOTE | 2020-03-14 06:30 | NUR ---
Critical potassium: Notified from lab that patient had a critical potassium of 2.7. Page sent to millinery salesperson hospitalist for replacement orders.
--- NOTE | 2020-03-14 07:15 | NUR ---
REPORT REPORT RECEIVED FROM SALVADOR PEREZ RN. BEDSIDE CHECK DONE.
--- NOTE | 2020-03-14 07:30 | NUR ---
REPORT REPORT RECEIVED FROM SALVADOR PEREZ RN. BEDSIDE CHECK DONE.
--- NOTE | 2020-03-14 08:15 | NUR ---
ASSESSMENT PT LAYING IN BED WITH EYES CLOSED AND NO SEDATION. NO SPONTANEOUS MOVEMENT NOTED AND PUPILS 5 AND FIXED. PT IS BLIND. ON THE VENTILATOR WITH SETTINGS: 8FR ETT/ 23 AT THE LIP, PC WITH RATE OF 24, PRESSURE 30, 30%FIO2, PEEP OF 5 AND I-TIME OF 0.8. LUNGS COARSE THROUGHOUT. TELE ATRIAL FIB 103. ABD SOFT WITH VERY HYPOACTIVE BOWEL SOUNDS. LEFT NARES NGT WITH 110 LIGHT CHOCOLATE MILK COLORED RESIDUAL. FLEXISEAL WITH SMALL AMOUNT OF WATERY BROWN FLUID IN THE TUBING. DRESSINGS TO BOTH FOREARMS, CLEAN AND DRY. WEEPING NOTED FROMBOTH ARMS AND ABD. SPLITS NOTED IN SLIN UNDER BREASTS , AND IN ABD FOLDS AND FOLDS OF GROIN. SEE WOUND CARE FOR COMPLETE LISTING . PT TURNED TO HER RIGHT SIDE. PT WITH EXTENSIVE OPEN PRESSURE AREAS NOTED TO BOTH BUTTOCKS AND POSTERIOR UPPER THIGHS WITH BROWN ESCHAR NOTED ON HER SACRUM/COCCYX. UNABLE TO APPLY DRESSING THEY WONT STAY ON DUE TO THE WEEPING. RAILS UP X4 AND BED IN LOW POSITION FOR PT SAFETY.
[2020-03-14] MEDS: POTASSIUM CHL 20MEQ/100ML 100 ML IV SCH ×2 (09:28→11:28)
[2020-03-14] MEDS: AMIODARONE HCL 200 MG TAB GT SCH ×2 (10:26→20:35)
[2020-03-14] MEDS: MEROPENEM 500MG IVPB 50 ML IV SCH ×2 (10:26→20:36)
[2020-03-14] MEDS: PANTOPRAZOLE 40 MG/10 ML VIAL INJ IV SCH (10:26)
--- NOTE | 2020-03-14 12:25 | NUR ---
MD VISIT DR VEGA TAKING OVER FOR NEPHROLOGY.
--- NOTE | 2020-03-14 12:32 | NUR ---
MD VISIT PT SEEN AND EXAMINED BY DR DAVISON. MADE AWARE OF K REPLACEMENT IN PROGRESS. HE WANTS A K REDRAW AT 1500 AND IF LEVEL LESS THAN 3.5 TO ADMINISTER ANOTHER 20mEQ IV.
--- NOTE | 2020-03-14 13:20 | NUR ---
CHANGED RR TO 20
[2020-03-14] MEDS: MIDAZOLAM DRIP 50 mg/50mL 50 ML IV SCH (13:50)
[2020-03-14] MEDS: VASOPRESSIN 50 UNITS in D5W 5% 247.5 ML IV SCH (15:20)
[2020-03-14] MEDS ORDERED: POTASSIUM CHL 20MEQ/100ML 100 ML IV ONE ×2 (18:37→18:45)
--- NOTE | 2020-03-14 19:30 | NUR ---
REPORT REPORT GIVEN TO ANA RNSALVADOR. BEDSIDE CHECK DONE.
--- NOTE | 2020-03-14 20:00 | NUR ---
Opening Shift Note: Patient is intubated/sedated. ET size 8.0/23 @ lip. Settings: PC rate 20; pressure 30; FiO2 30%; I-time 0.8; PEEP 5. Neuro: legally blind per report; bilateral pupils are 5 mm/fixed; flaccid extremities; absent cough/gag. Cardio: Afib 100s-120s; SBP 100s-110s; pulses are irregular and weak; +4 pitting edema BLE; +3 pitting edema bilateral arms/hands. Resp: BUL coarse; bilateral bases diminished; scant blood suctioned from mouth; small yellow/creamy thick secretions from ET tube. GI: left NGT clamped; more than 60 ml of tube feed residual present; feedings still held. Flexiseal in place but leaking liquid light brown stool; attempted to adjust with no success. Irving inserted on 03/07/20 for strict I/O; [facility] dialysis patient MWF; access is a LUE fistula; last dialysis was 03/11/20 with 1L removed per report. Next dialysis possibly tomorrow per report but no order in system. Skin: multiple issues, see charting. IV right femoral TLC inserted on 03/07/20 running, Vega double conc. @ 180, Vasopressin @ 0.05, Levo @ 12. Pending CXR and laboratory studies in AM. Will continue to round/reposition/perform oral care prn.
[2020-03-15] VITALS (104 sets, daily range): BP systolic 16–118; BP diastolic 32–55
[2020-03-15] MEDS: ALBUTEROL SULF 2.5 MG/0.5ML(0.5%) NEB SOLN NEB SCH ×4 (00:06→18:13)
--- NOTE | 2020-03-15 04:00 | NUR ---
Patient bathe/linen change Patient given complete CHG bath. Skin integrity assessed for any changes. All dressings changed per orders. Right Femoral line dressing changed. Linens and gown changed. Patient repositioned for comfort.
[2020-03-15 04:10] LABS: Hemoglobin 8.2 g/dL (12.2-16.2); Red Blood Cells 2.61 10^6/uL (4.0-5.20); Red Cell Distribution Width 18.1 % (11.8-14.3)
[2020-03-15 04:12] LABS: Hematocrit 25.4 % (36.0-46.0); Mean Corpuscular Hemoglobin 31.2 pg (28.0-32.0); Mean Corpuscular Hgb Conc. 32.2 g/dL (32.0-36.0); Mean Corpuscular Volume 97.1 fL (80.0-100.0); Platelet Count (auto) 106 10^3/uL (140-450); White Blood Cell 25.4 10^3/uL (4.4-10.8)
[2020-03-15 04:35] LABS: Basophils % (manual) 0 (0.0-2.0); Blast Cells 0; Metamyelocytes % 0; Myelocytes % 0; Promyelocytes % 0; Reactive Lymphocytes 0
[2020-03-15 04:36] LABS: Albumin 1.4 g/dL (3.4-5.0); BUN/Creatinine Ratio 11.3; Calcium 6.9 mg/dL (8.5-10.1)
[2020-03-15 05:05] LABS: Potassium 2.9 mmol/L (3.5-5.1)
[2020-03-15 05:27] LABS: Band Neutrophils % (manual) 9; Eosinophils % (manual) 1 (0-7); Lymphocytes % (manual) 2 (10.0-50.0); Monocytes % (manual) 1 (0-12)
[2020-03-15] MEDS: ACCU-CHEK COMFORT CURVE STRIP VI SCH ×4 (06:00→17:50)
[2020-03-15] MEDS: InsuLIN REG 1unit/0.01ml Soln (100units/ml) SC SCH ×4 (06:00→17:50)
[2020-03-15] MEDS: PHENYLEPHRINE INJ 40 MG in SODIUM CHL 0.9% 250 ML IV SCH ×3 (06:00→21:27)
[2020-03-15] MEDS: VASOPRESSIN 50 UNITS in D5W 5% 247.5 ML IV SCH ×2 (06:02→21:27)
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
--- NOTE | 2020-03-15 06:16 | NUR ---
Respiratory note: RECEIVED PATIENT ON V21 V200 VENT ORALLY INTUBATED WITH AN 8.0 ETT SECURED VIA HARITHA AT THE 24CM MARKING AT THE LIP, AND MECHANICALLY VENTILATED WITH THE CHARTED SETTINGS. SPO2 100%, LUNG SOUNDS DIM T/O, SCANT AMOUNT OF LIGHT PHAM SECRETIONS WHEN SUCTIONED. SKIN IS WARM/DRY TO THE TOUCH AND IS INTACT NEAR HARITHA SITE. THERE IS A NGT IN THE RIGHT NARE AND IS SECURED TO THE NOSE, NO ADVANCE ACCESS LINES NOTED. PITTING EDEMA NOTED IN BILATERAL UPPER AND BILATERAL LOWER EXTREMITIES. SEQUENTIAL STOCKINGS ARE IN PLACE AND OPERATIONAL. NO NEW AM CXR TO ASSESS. PATIENT IS UNRESPONSIVE TO BOTH VERBAL/TACTILE STIMULI AND IS OFF ALL SEDATION. SHE IS RESTING COMFORTABLY AND TOLERATING VENT WELL, NO CHANGES MADE. VENT PLUGGED INTO RED OUTLET AND ALL ALARMS ARE SET AND AUDIBLE. WILL CONTINUE TO ASSESS PATIENT WELL VENTILATOR FUNCTION. [employer] RUN INLINE.
[2020-03-15] MEDS: POTASSIUM CHL 20MEQ/100ML 100 ML IV SCH ×2 (06:30→08:40)
--- NOTE | 2020-03-15 06:30 | NUR ---
Critical potassium of 2.9. core stacker hospitalist gave new order for 40 meq of replacement.
--- NOTE | 2020-03-15 07:30 | NUR ---
REPORT REPORT RECEIVED FROM SALVADOR PEREZ RN. BEDSIDE CHECK DONE.
--- NOTE | 2020-03-15 08:15 | NUR ---
ASSESSMENT PT LAYING IN BED WITH EYES CLOSED, PUPILS 5 AND FIXED AND NO SPONTANEOUS MOVEMENT NOTED. PT OFF SEDATION SINCE SATURDAY EVENING. INTUBATED AND VENTILATOR SETTINGS OF: 8 FR ETT/ 23 AT THE LIP, PRESSURE CONTROL MODE, PRESSURE OF 30, RATE OF 20, 30% FIO2, PEEP OF 5 AND I TIME OF 0.8. LUNGS COARSE THROUGHOUT. TELE ATRIAL FIB 118, WITH INVERTED T WAVE IN LEAD II AND ELEVATED ST IN LEAD V. PALPABLE PULSES TO ALL EXTREMITIES, WEAK TO ALL. SCDS TO BLE. GENERALIZED EDEMA NOTED. +2 PITTING EDEMA TO BOTH THIGHS AND LOWER LEGS AND +4 TO HER FEET. AMPUTATION OF RIGHT TOES 3,4,5 AND PART OF FOOT, SCABBED. LEFT TOE #3 AMPUTATED WITH OPEN WOUND, PINK AND MOIST AT THE CENTER, WITH BANDAID APPLIED. LEFT NARES NGT WTIH 75 ML RESIDUAL NOTED. FLEXISEAL IN PLACE DRAINING LIQUID PHAM/BROWN BM. PT WITH BROWN ESCHAR ON HER SACRUM /COCCYX AND OPEN AREAS WITH RED WOUND BEDS TO SACRUM/COCCYX, AND BOTH BUTTOCKS AND BACK OF UPPER THIGHS. NO DRESSING FLEXISEAL HAS BEEN LEAKING AT TIMES. PT REPOSITIONED TO HER RIGHT SIDE. PT CURRENTLY ON VASOPRESSIN, LEVOPHED AND NEOSYNEPHRINE FOR BP SUPPORT. K LEVEL THIS AM OF 2.9 AND REPLACEMENT OF 40 mEQ IV , IN PROGRESS.
[2020-03-15] MEDS ORDERED: PHENYLEPHRINE HCL 10 MG/ML VL ONE ×2 (09:15→23:58)
[2020-03-15] MEDS ORDERED: PHENYLEPHRINE IV 250 ML IV ONE ×2 (09:15→23:58)
--- NOTE | 2020-03-15 10:00 | NUR ---
PT GIVEN SCHEDULED MEDS. PT WITH LEAKAGE OF LIQUID BM WITH SMALL CURDS AROUND THE FLEXISEAL. MOOKIE CARE GIVEN AND PARTIAL LINEN CHANGE DONE.
[2020-03-15] MEDS: MEROPENEM 500MG IVPB 50 ML IV SCH ×2 (10:02→21:06)
[2020-03-15] MEDS: AMIODARONE HCL 200 MG TAB GT SCH ×2 (10:03→21:06)
[2020-03-15] MEDS: PANTOPRAZOLE 40 MG/10 ML VIAL INJ IV SCH (10:03)
--- NOTE | 2020-03-15 10:51 | NUR ---
Nutrition Followup Notes Wt: 99.2 kg (+ 4 edema) Pt`s intubated sedated with no family by bedside. Pt with Nepro CS ordered at 40 ml/hr. Per RN note pt was receiving TF with high residuals. TF is being held d/t, consider restarting when medically feasible. Est energy needs ABW 68 [id number] kcal (27-30 kcal/kg ABW) , Est protein needs 81-95 g (1.2-1.4g/kg BW r/t HD wounds) . Will reassess prn. LABS: K 2.9L, BUN 30H, Creat 2.66H, Alb 1.4L, Ca 6.9L, GLUC 129H, T Bili 10.0H GI: Pt had 1 BM 8/2 and 200 ml stool 8/ per RN doc BS: 7 high risk. Refer to wound assessment report for full details. PES: Altered nutrition related lab r/t current chronic medical condition aeb elev RFT severe hypoalb hypocalcemia Impaired swallowing r.t current medical condition aeb pt`s intubated sedated with order of NPO Comments Will continue to closely monitor pertinent labs, NPO status, skin status and weight trends. Will f/u in 2-3 days Rec: 1) consider EN support with Nephro carb steady @ 45 ml/hr per MD approval. 2) advance diet as medically feasible. 3) consider nephrovite bid. 4) consider prostat 1 packet bid. 5) continue current plan of car
--- NOTE | 2020-03-15 11:00 | NUR ---
MD VISIT PT SEEN AND EXAMINED BY DR MALDONADO. I UPDATED HER ON THE PT'S CURRENT CONDITION. SHE SPOKE WITH ROXANN, PT'S BROTHER IN LAW, AND MADE AWARE OF CURRENT CONDITION AND PROGNOSIS. THEY ARE GOING TO DISCUSS WITH THE FAMILY AND LET US KNOW WHAT THEY WANT TO DO.
--- NOTE | 2020-03-15 11:50 | NUR ---
ACCUCHECK OF 130 WITH NO INSULIN COVERAGE PER SLIDING SCALE ORDERS. REPOSITIONED FOR COMFORT. CONTINUE TO MONITOR.
[2020-03-15] MEDS: MIDAZOLAM DRIP 50 mg/50mL 50 ML IV SCH (14:22)
[2020-03-15] MEDS: NOREPINEPHRINE BITARTRATE 16 MG in SODIUM CHL 0.9% 250 ML IV SCH (14:25)
--- NOTE | 2020-03-15 16:34 | NUR ---
WOUND CARE NOTE: Wound care in to see patient for reevaluation of multiple wounds that are noted present on admission. Patient continue resting on air bed in ICU Rm. 104. Patient is intubated, and mechanically ventilated. Patient appears to be in no pain using Liu Velasco Faces pain Scale. Her Ellis score is 8. Skin/wound assessment done with the assistance of patient's nurse, MATTY Ritter. Patient's bilateral arm continue to display multiple skin tear, puncture wounds on ecchymotic, weeping edematous arms. Cleansed multiple skin tear with wound cleanser,applied Thera honey gauze, covered with Opti lock dressing and secured with stockinette. Patient has generalized edema, weeping to multiple area of her body. Her Rt and Lt lower abdominal fold continue to display large skin tear with pale pink wound bed with yellow, draining moderate serous drainage. Cleansed abdominal fold wounds with wound cleanser,patted dry with gauze, applied Thera honey gauze, covered with Opti lock dressing and applied clean linen to help wick moisture. Patient's sacral and thigh pressure injury is necrotic and macerated, measured as large wound from sacral down to bilateral posterior thighs. Patient has rectal tube in placed with liquid stool in tubing and in bag. Sacral and posterior thigh wound is combination of pressure and moisture. Wounds are red, macerated with black and yellow slough. Moderate serous drainage noted, no odor noted. Cleansed patient's sacral and thigh wounds with wound cleanser, patted dry with gauze, applied Z Guard cream and covered Xeroform dressing. Unable to put any adhesive due patient's skin due to edematous, thin sensitive skin and bandage slipping off wounds. Wound to patient's L foot interdigital s/p amputation of L 3rd toe remain the same. All wound stat can be found in [facility] wound assessment, nurse intervention. Photograph of patient's wounds are taken for reference. Patient tolerated well, repositioned patient for comfort facing her Lt side, redistributed pressure points with pillows . MATTY Ritter at bedside. RECOMMENDATION: Nursing to continue with dressing changes to multiple wounds per MD order, continuation of all wound care orders prescribed by MD,continue with skin/wound plan of care, continue monitoring by wound care while patient is hospitalized. Addendum: 03/15/20 at 1800 by Lachelle Martinez RN Amended: Links added.
--- NOTE | 2020-03-15 19:40 | NUR ---
REPORT REPORT GIVEN TO ANA RNSALVADOR. BEDSIDE CHECK DONE.
--- NOTE | 2020-03-15 19:45 | NUR ---
Opening Shift Note: Patient is intubated/sedated. ET size 8.0/23 @ lip. Settings: PC rate 20; pressure 30; FiO2 30%; I-time 0.8; PEEP 5. Neuro: legally blind per report; bilateral pupils are 5 mm/fixed; flaccid extremities; absent cough/gag. Cardio: Afib 100s-120s; SBP 90s-110s; pulses are irregular and weak; +4 pitting edema BLE; +3 pitting edema bilateral arms/hands. Resp: BUL coarse; bilateral bases diminished; scant blood suctioned from mouth; small yellow/creamy thick secretions from ET tube. GI: left NGT clamped; feedings still held. Flexiseal in place but leaking liquid light brown stool; attempted to adjust with no success. Irving inserted on 03/07/20 for strict I/O; [facility] dialysis patient MWF; access is a LUE fistula; last dialysis was 03/11/20 with 1L removed per report. No current plan for dialysis related to possible terminal wean tomorrow. Skin: multiple issues, see charting. IV right femoral TLC inserted on 03/07/20 running, Vega double conc. @ 180, Vasopressin @ 0.05, Levo @ 12. Will continue to round/reposition/perform oral care prn.
[2020-03-16] VITALS (77 sets, daily range): BP systolic 85–127; BP diastolic 39–54
[2020-03-16] MEDS: ALBUTEROL SULF 2.5 MG/0.5ML(0.5%) NEB SOLN NEB SCH ×3 (00:30→12:00)
[2020-03-16] MEDS: PHENYLEPHRINE INJ 40 MG in SODIUM CHL 0.9% 250 ML IV SCH ×4 (01:30→16:16)
[2020-03-16] MEDS ORDERED: PHENYLEPHRINE IV 250 ML IV ONE ×2 (04:26→05:44)
[2020-03-16] MEDS ORDERED: PHENYLEPHRINE HCL 10 MG/ML VL ONE ×2 (04:26→05:44)
[2020-03-16] MEDS: InsuLIN REG 1unit/0.01ml Soln (100units/ml) SC SCH ×3 (04:51→11:23)
[2020-03-16] MEDS: ACCU-CHEK COMFORT CURVE STRIP VI SCH ×3 (04:51→11:23)
[2020-03-16] MEDS ORDERED: SODIUM CHLORIDE 0.9 % NEB SOLN 3ML NEB ONE ×2 (06:42→11:53)
--- NOTE | 2020-03-16 07:45 | NUR ---
Opening Shift Note: Patient is intubated/sedated. ET size 8.0/23 @ lip. Settings: PC rate 20; pressure 30; FiO2 30%; I-time 0.8; PEEP 5, with left NGT. Flexiseal in place but leaking liquid light brown stool Irving catheter in place, hanging on side of bed to gravity free of kinks or obstruction. Inserted on 03/07/20 for strict I/O. Pt followed by Dr. Dawson at the [facility] dialysis center [facility], but per Dr. Dawson notes no longer dialysis is recommended. Pt has a LUE fistula; last dialysis was 03/11/20 with 1L removed per report. Central line to the right femoral TLC inserted on 03/07/20 with gtt's running; Neosynephrine double conc. @ 180mcg/min, Vasopressin @ 0.05units/min, Levophed double conc. @ 12mcg/min. Will continue to round/reposition/perform oral care Q2H/ PRN
--- NOTE | 2020-03-16 09:10 | NUR ---
MD Dr. Holt called asking if family visited last night, inform her that per report no family visited last night. Dr. Holt will contact family to update on POC to terminally wean, and to coordinate family visiting before terminally weaning patient. Will continue to monitor patient.
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
[2020-03-16] MEDS: MEROPENEM 500MG IVPB 50 ML IV SCH (09:47)
[2020-03-16] MEDS: PANTOPRAZOLE 40 MG/10 ML VIAL INJ IV SCH (09:48)
[2020-03-16] MEDS: AMIODARONE HCL 200 MG TAB GT SCH (09:48)
[2020-03-16] MEDS ORDERED: ALBUTEROL SULF 2.5 MG/0.5ML(0.5%) NEB SOLN ONE (11:53)
[2020-03-16] MEDS: VASOPRESSIN 50 UNITS in D5W 5% 247.5 ML IV SCH (13:46)
[2020-03-16] MEDS: MIDAZOLAM DRIP 50 mg/50mL 50 ML IV SCH (13:50)
--- NOTE | 2020-03-16 14:01 | NUR ---
FAMILY CALLED PATIENT'S NEPHEW ANNIA CALLED TO REPORT THAT HE AND "HIS UNCLE" WILL BE COMING AROUND 3-4 PM TO "DISCONNECT EVERYTHING".
--- NOTE | 2020-03-16 15:58 | NUR ---
Visitors Pt family at bedside; [id number] Keaton, and nephew Herminio. Updated on plan of care and answered any further questions.
[2020-03-16] MEDS ORDERED: MORPHINE SULF INJ 2 MG/ML SYRINGE 1ML IV PRN (17:15)
[2020-03-16] MEDS ORDERED: LORazepam 2MG/ML-1ML VIAL IV PRN (17:15)
--- NOTE | 2020-03-16 17:25 | NUR ---
RT NOTIFIED THAT PATIENTS FAMILY IS READY FOR EXTUBATION. FAMILY SIGNED DNR ORDERS AND RECORD OF /AUTHORIZATION FOR RELEASE OF REMAINS. FAMILY ARRANGED SERVICES WITH [facility] PARTHA MORA [phone].
--- NOTE | 2020-03-16 18:05 | NUR ---
Respiratory note: PT TERMINALLY EXTUBATED AT THIS TIME ORDERED. PLACED ON 2L NC. HR 111, SPO2 71%, RR 0. FAMILY AND RN REMAIN AT BEDSIDE.
--- NOTE | 2020-03-16 18:05 | NUR ---
RT Pt extubated by RT and placed on 2L NC. Morphine Sulfate 2mg IV administered. All Gtt's discontinued. NGT discontinued. Patients family remained at bedside during procedure. Continued with Tele monitoring. Will continue to monitor patient.
--- NOTE | 2020-03-16 18:31 | NUR ---
TOD 183 PRONOUNCED BY SOLEDAD CAMACHO AT BEDSIDE. EKG ASYSTOLE STRIP PRINTED AND PLACED ON PATIENTS CHART.
--- NOTE | 2020-03-16 18:47 | NUR ---
INITIAL CALL MADE TO [facility]'S OFFICE. SPOKE WITH CHACE AND COLLECTED PT'S INFORMATION. AWAITING CALL BACK.
--- NOTE | 2020-03-16 18:50 | NUR ---
[facility] CONTACTED. SPOKE WITH DIONICIO. PATIENT INFORMATION GIVEN. PER DIONICIO PT WILL BE RELEASED AUTHORIZATION # [id number]
--- NOTE | 2020-03-16 19:30 | NUR ---
REPORT GIVEN TO TESSY. CONTINUE TO AWAIT FOR EXTRACORPOREAL CIRCULATION SPECIALIST TO CALL BACK.
--- NOTE | 2020-03-16 21:06 | NUR ---
[employer]ONERS TALKED TO JUNIOR STAFF ACCOUNTANT OFFICER ABDIEL SAHA SHE SAID BODY IS RELEASED BUT NO CASE NUMBER [id number] SHE SAID JUST GIVE HER NAME TO THE MORTUARY AND IF THERE IS ANYTHING REPORTABLE THE MORTUARY WILL REPORT TO THEM.
--- NOTE | 2020-03-16 22:15 | NUR ---
POST MORTEM CARE DONE LINES AND CATHETER REMOVED
--- NOTE | 2020-03-16 22:30 | NUR ---
CALLED [facility] [employer] WILL CALL BACK FOR ETA
--- NOTE | 2020-03-16 22:30 | NUR ---
MORTUARY ETA 1 TO 1 /2 HRS Addendum: 03/16/20 at 2323 by Chula Little RN MORTUARY CALLED AT 2300
--- NOTE | 2020-03-16 22:39 | NUR ---
CALLED ANNIA PHAM,PATIENT'S NEPHEW INFORMED THAT [facility] WILL PICKED UP THE BODY TONIGHT THEY WILL CALL BACK FOR THE ETA VERBALIZED UNDERSTANDING
--- NOTE | 2020-03-17 00:05 | NUR ---
BODY TAKEN BY [facility] STAFF
== END 2020-03-17 00:05 | disposition expired | DRG 720 ==
LOC: EDBD 01:09 → ER 01:09 → OVERFLOW 01:10 → ICU WEST 03-09 11:08
PROVIDERS: ADMIT Hospitalist; ATTEND Internal Medicine
PROC: 5A1955Z Respiratory Ventilation, Greater than 96 Consecutive Hours (ICD-10-PCS; 2020-03-07)
PROC: 0BH17EZ Insertion of Endotracheal Airway into Trachea, Via Natural or Artificial Opening (ICD-10-PCS; 2020-03-07)
PROC: 30233K1 Transfusion of Nonautologous Frozen Plasma into Peripheral Vein, Percutaneous Approach (ICD-10-PCS; principal; 2020-03-08)
PROC: 30233R1 Transfusion of Nonautologous Platelets into Peripheral Vein, Percutaneous Approach (ICD-10-PCS; 2020-03-08)
PROC: 5A1D70Z Performance of Urinary Filtration, Intermittent, Less than 6 Hours Per Day (ICD-10-PCS; 2020-03-09)
PROC: 02HV33Z Insertion of Infusion Device into Superior Vena Cava, Percutaneous Approach (ICD-10-PCS; 2020-03-09)
PROC: 30233N1 Transfusion of Nonautologous Red Blood Cells into Peripheral Vein, Percutaneous Approach (ICD-10-PCS; 2020-03-10)
PROC: 5A1D70Z Performance of Urinary Filtration, Intermittent, Less than 6 Hours Per Day (ICD-10-PCS; 2020-03-11)
DX: A41.81 Sepsis due to Enterococcus (principal); N18.6 End stage renal disease; Z99.2 Dependence on renal dialysis; I95.0 Idiopathic hypotension; D64.9 Anemia, unspecified; E87.6 Hypokalemia; G93.41 Metabolic encephalopathy; I48.91 Unspecified atrial fibrillation; J96.02 Acute respiratory failure with hypercapnia; R65.21 Severe sepsis with septic shock; N17.0 Acute kidney failure with tubular necrosis; N39.0 Urinary tract infection, site not specified; E43 Unspecified severe protein-calorie malnutrition; I73.9 Peripheral vascular disease, unspecified; E78.5 Hyperlipidemia, unspecified; L89.90 Pressure ulcer of unspecified site, unspecified stage; E11.40 Type 2 diabetes mellitus with diabetic neuropathy, unspecified; I50.31 Acute diastolic (congestive) heart failure; J69.0 Pneumonitis due to inhalation of food and vomit; E11.22 Type 2 diabetes mellitus with diabetic chronic kidney disease; Z66 Do not resuscitate; Z79.899 Other long term (current) drug therapy; Z68.36 Body mass index [BMI] 36.0-36.9, adult; B96.5 Pseudomonas (aeruginosa) (mallei) (pseudomallei) as the cause of diseases classified elsewhere; Z20.828 Contact with and (suspected) exposure to other viral communicable diseases; Z51.5 Encounter for palliative care; D65 Disseminated intravascular coagulation [defibrination syndrome]; L89.300 Pressure ulcer of unspecified buttock, unstageable; E11.51 Type 2 diabetes mellitus with diabetic peripheral angiopathy without gangrene; Z79.4 Long term (current) use of insulin; I13.2 Hypertensive heart and chronic kidney disease with heart failure and with stage 5 chronic kidney disease, or end stage renal disease; Z89.422 Acquired absence of other left toe(s)
CPT/HCPCS: 31500; 36415; 36556; 36600; 51702; 71045; 73501; 80048; 80053; 80061; 80202; 81001; 82728; 82805; 82962; 83605; 83615; 83735; 83880; 84132; 84443; 84484; 85007; 85025; 85027; 85379; 85384; 85610; 85730; 86141; 86850; 86900; 86901; 86920; 87040; 87070; 87077; 87081; 87086; 87088; 87186; 87205; 90935; 93005; 94002; 94003; 94640; 96360; C9113; G0378; J0885; J1642; J1815; J2001; J2185; J2250; J2543; J3480; J7060; P9047